=== PATIENT | male | born 1975 | race Caucasian/White ===

== ENCOUNTER 2024-02-15 09:04 | Emergency (ER) | payer OTHER, MEDICAID, SELFPAY ==
--- NOTE | ~2024-02-15 | XR_ITS ---
EXAMINATION: XR THORACIC SPINE XR LUMBAR SPINE CLINICAL INDICATION: Back pain, patient kept moving. COMPARISON: Frontal chest radiograph 05/29/2015. TECHNIQUE: 4 views of the thoracic spine. 3 views of the lumbar spine. FINDINGS: THORACIC SPINE: Degenerative changes on very limited images of the lower cervical spine could be evaluated with dedicated cervical spine radiographs. Moderate multilevel degenerative changes in the thoracic spine most notable in the lower thoracic spine. Moderate anterior wedge compression deformity of likely T11 vertebral body of indeterminate age. Minimal anterior wedge compression deformity of likely T12 vertebral body of indeterminate age. LUMBAR SPINE: Facet arthritis in the lower lumbar spine. Moderate multilevel lumbar spondylosis with moderate loss of disc space height at L4-L5. XR/XR thoracic spine 3V IMPRESSION: 1. Moderate multilevel thoracic spondylosis most notable in the lower thoracic spine. Moderate anterior wedge compression deformity of likely T11 vertebral body of indeterminate age. Minimal anterior wedge compression deformity of likely T12 vertebral body of indeterminate age. 2. Moderate multilevel lumbar spondylosis with moderate loss of disc space height at L4-L5. This study was presented today February 15, 2024 for interpretation. STAT results provided at this time as requested by referring provider.
--- NOTE | ~2024-02-15 | XR_ITS ---
EXAMINATION: XR THORACIC SPINE XR LUMBAR SPINE CLINICAL INDICATION: Back pain, patient kept moving. COMPARISON: Frontal chest radiograph 05/29/2015. TECHNIQUE: 4 views of the thoracic spine. 3 views of the lumbar spine. FINDINGS: THORACIC SPINE: Degenerative changes on very limited images of the lower cervical spine could be evaluated with dedicated cervical spine radiographs. Moderate multilevel degenerative changes in the thoracic spine most notable in the lower thoracic spine. Moderate anterior wedge compression deformity of likely T11 vertebral body of indeterminate age. Minimal anterior wedge compression deformity of likely T12 vertebral body of indeterminate age. LUMBAR SPINE: Facet arthritis in the lower lumbar spine. Moderate multilevel lumbar spondylosis with moderate loss of disc space height at L4-L5. XR/XR lumbar spine 2-3V IMPRESSION: 1. Moderate multilevel thoracic spondylosis most notable in the lower thoracic spine. Moderate anterior wedge compression deformity of likely T11 vertebral body of indeterminate age. Minimal anterior wedge compression deformity of likely T12 vertebral body of indeterminate age. 2. Moderate multilevel lumbar spondylosis with moderate loss of disc space height at L4-L5. This study was presented today February 15, 2024 for interpretation. STAT results provided at this time as requested by referring provider.
[2024-02-15 09:07] VITALS: BP 173/95; PULSE 107; RESP 20; TEMP 36.4; O2SAT 99; BMI 31.2
[2024-02-15 09:28] LABS: MANUAL DIFF FLAG NO
[2024-02-15 09:33] LABS: Basophils Absolute Auto 0.1 X10*3/uL (0.0-0.2); Basophils Percent Auto 0.7 % (0-2); Eosinophils Absolute Auto 0.1 X10*3/uL (0.0-0.4); Eosinophils Percent Auto 0.7 % (0-4); Hematocrit 42.7 % (42.0-52.0); Hemoglobin 15.5 g/dl (14.0-18.0); Imm Gran Abs Auto 0.08 X10*3/uL (0.00-0.03); Imm Gran Pct Auto 0.9 % (0.0-0.4); Lymphocytes Absolute Auto 1.6 X10*3/uL (1.2-4.9); Lymphocytes Percent Auto 18.4 % (20-40); Mean Corpuscular HGB Conc 36.3 g/dl (31.0-36.0); Mean Corpuscular Hemoglobin 31.3 pg (27.0-33.0); Mean Corpuscular Volume 86.3 fL (80.0-98.0); Mean Platelet Volume 10.2 fL (9.4-12.4); Monocytes Absolute Auto 0.5 X10*3/uL (0.1-1.2); Monocytes Percent Auto 6.1 % (2-11); Neutrophils Absolute Auto 6.3 x10*3/uL (2.0-8.3); Neutrophils Percent Auto 73.2 % (45-73); Platelet Count 204 X10*3/uL (160-400); Red Blood Count 4.95 X10*6/uL (4.60-5.80); Red Cell Distribution Width 12.4 % (11.0-16.0); White Blood Count 8.5 X10*3/uL (4.8-10.8)
[2024-02-15 09:33] LABS: Glucose, Whole Blood 279 mg/dL (60-115)
[2024-02-15 09:39] LABS: Estimated Average Glucose 206 mg/dL; Hemoglobin A1c % 8.8 % (<6.0)
[2024-02-15 09:44] LABS: Alanine Aminotransferase 5 U/L (0-40); Albumin Level 3.7 g/dL (3.5-5.0); Alkaline Phosphatase 76 U/L (39-117); Anion Gap 12 (12-20); Aspartate Amino Transferase 17 U/L (5-37); Bilirubin Total 0.4 mg/dL (0.0-1.0); Blood Urea Nitrogen 13 mg/dL (9-16); Calcium 9.3 mg/dL (8.4-10.2); Carbon Dioxide 25 mmol/L (22-29); Chloride 107 mmol/L (96-108); Creatinine Clr Calc Pharmacy 128.1; Estimated Glomerular Filt Rate > 60; Glucose Random 299 mg/dL (60-115); Potassium 4.6 mmol/L (3.3-5.1); Sodium 139 mmol/L (135-145); Total Protein 7.3 g/dL (6.5-8.0)
--- NOTE | 2024-02-15 09:45 | ED.GENADULT ---
HPI - General Adult General Chief complaint: General Medical Stated complaint: Back pain radiating to legs Time Seen by Provider: 02/15/24 09:32 Source: patient and RN notes reviewed Mode of arrival: ambulatory Limitations: no limitations History of Present Illness ED Provider: Ivonne Troy PA-C HPI narrative: This is a [id number]-male, with a hx of poorly controlled diabetes, HTN, and HLD, who presents to the ER with complaints of acute on chronic back pain x 1 week. Patient states that he has had no recent trauma or injury. He states that he has been chronically managed by pain management in [place] however states about 2 months ago he relocated to this area. He is currently managed with gabapentin and oxycodone which he has been taking with some relief. He states that over the last week he has had worsening low back pain with numbness and tingling down his left leg. He denies any saddle anesthesia. No urinary or bowel retention or incontinence. He denies any fevers, chills, chest pain, shortness of breath, abdominal pain, nausea, vomiting or diarrhea. No other complaints or concerns at this time. MD complaint: Acute on chronic Back pain Onset (ago): week(s) Location: back Radiation: extremity Severity: moderate Quality: aching Pain Consistency: constant Relieving factors: none Exacerbating factors: none Associated symptoms: denies other symptoms Treatments prior to arrival: none Related Data Previous Rx's ?Medication ?Instructions ?Recorded lidocaine 5 % topical patch 1 patch topical DAILY #30 ea 02/15/24 prednisone 20 mg tablet 40 mg (2 x 20 mg) PO DAILY 5 days 02/15/24 #10 tabs Allergies Allergy/AdvReac Type Severity Reaction Status Date / Time SEAFOOD Allergy Unknown SWELLING Uncoded 02/15/24 09:10 Review of Systems Review of Systems: Yes all other systems are reviewed and are negative Constitutional: Constitutional: Reports as per [facility] Social History Social History Advance Directives: No Advance Directives Information Provided: Yes Do you have a plan to hurt others: No Plan Physical Exam ED Vital Signs: Vital Signs - 24 hr 02/15/24 09:07 02/15/24 10:33 02/15/24 13:41 Temperature 97.6 F 98.1 F Pulse Rate 107 H 72 56 Respiratory Rate 20 16 16 Blood Pressure 173/95 H 165/87 H 184/91 H Pulse Oximetry 99 98 99 Oxygen Delivery Method Room Air Room Air Room Air 02/15/24 14:54 Temperature 98.2 F Pulse Rate 60 Respiratory Rate 16 Blood Pressure 192/88 H Pulse Oximetry 98 Oxygen Delivery Method Room Air BMI result Body Mass Index 31.2 Const General: cooperative, comfortable and no acute distress Orientation/consciousness: patient oriented x3 Limitations: no limitations HENMT Head: Yes normal to inspection, Yes normocephalic and Yes atraumatic Ears: hearing grossly normal bilaterally General nose exam: Normal external nose present Face and sinus: Yes normal facial exam Mouth: Normal oral and palatal mucosa present, oropharynx normal and moist mucous membranes Throat: Yes posterior oropharynx normal Eyes General: appearance normal, both eyes and all related structures Eyelids: Yes eyelids normal Conjunctivae: conjunctivae normal Sclerae: sclerae normal Pupils: Equal, round and reactive pupils present EOM: EOMs intact bilaterally Neck Neck: Yes normal visual inspection, Yes full ROM and Yes no lymphadenopathy Lymphatic: no lymphadenopathy noted Chest Chest palpation & inspection: normal inspection of the chest Resp Effort & Inspection: normal respiratory effort and able to speak in complete sentences Auscultation: clear to auscultation bilaterally, no crackles, no rales, no rhonchi and no wheezes Cardio Rate: regular rate Rhythm: regular rhythm Heart sounds: S1 normal heart sound present and S2 normal heart sound present GI Inspection: Yes normal to inspection Back/Spine/Pelvis Other: Patient has mild tenderness palpation along the thoracic and lumbar midline spine. Positive straight leg raise on the left. Distal sensation circulation intact. Strength 5/5 in lower extremities. Skin General skin exam: no rashes or lesions noted Trauma: no lacerations or abrasions Wounds: no wounds Neuro General: patient oriented x3 and moves all extremities Cranial nerves: Yes Equal, round and reactive pupils present Extrem General: Yes normal to inspection Right upper extremity: normal to inspection Left upper extremity: normal to inspection Right lower extremity: normal to inspection Left lower extremity: normal to inspection Course Reevaluation(s) Reevaluation #1: X-rays reviewed revealing multilevel thoracic spondylosis with moderate anterior wedge compression deformity likely T11 vertebral body, indeterminate of age. As well as multilevel lumbar spondylosis with moderate disc space height of L4-L5. Discussed findings with patient. Given referral to help desk support specialist as well as pain management and [facility] for primary care. Given that he recently moved to the area, he will need follow-up. Discharged with prednisone. He is already on gabapentin and narcotic pain medication therefore will not treat with any additional medications due to medication interactions. He understands and agrees with plan. Given return precautions. Patient stable for discharge. Time: 15:39 Medications Administered Discontinued Medications Generic Name Dose Route Start Last Admin Trade Name Satya PRN Reason Stop Dose Admin Ketorolac Tromethamine 30 mg 02/15/24 10:32 02/15/24 11:17 Ketorolac Tromethamine 30 Mg/Ml Vial IM 02/15/24 10:33 30 mg ONCE ONE Administration Medical Decision Making Medical Decision Making [facility] Narrative: This is a 48-year-old male, with a history of diabetes, and chronic back pain, who presents emergency department with complaints of acute on chronic back pain times 1 week. On arrival, patient comfortable, speaking full sentences under no distress. He does have midline lumbar spine tenderness as well as thoracic spine tenderness. He has no chest pain, shortness breath, abdominal pain, nausea, vomiting or diarrhea. This patient presents with back pain most consistent with lumbar radiculopathy. Differential diagnoses includes lumbago versus musculoskeletal spasm / strain versus sciatica.No back pain red flags on history or physical. Presentation not consistent with malignancy (lack of history of malignancy, lack of B symptoms), fracture (no trauma, no bony tenderness to palpation), cauda equina (no bowel or urinary incontinence/retention, no saddle anesthesia, no distal weakness), AAA, viscus perforation , pulmonary embolism, renal colic, pyelonephritis (afebrile, no CVAT, no urinary symptoms). Given the clinical picture, as well as no history of prior visits, will obtain x-rays for evaluation. Differential Diagnosis Differential Diagnoses: The differential diagnosis associated with the presentation includes See above Admission/Observation Consideration of admission/observation: Escalation of care including admission/observation considered Escalation of care including admission/observation considered however given workup today not warranted at this time. Lab Data [facility] Lab Attestation statement: I reviewed the patient's lab results. No leukocytosis, stable H&H, chemistry within normal limits. Hyperglycemic at 279, hemoglobin a1c 8.8. Discussed the importance of following up with PCP. 02/15/24 09:23 02/15/24 09:23 Labs: Lab Results 02/15/24 02/15/24 Range/Units 09:23 09:29 WBC 8.5 (4.8-10.8) X10*3/uL RBC 4.95 (4.60-5.80) X10*6/uL Hgb 15.5 (14.0-18.0) g/dl Hct 42.7 (42.0-52.0) % MCV 86.3 (80.0-98.0) fL MCH 31.3 (27.0-33.0) pg MCHC 36.3 H (31.0-36.0) g/dl RDW 12.4 (11.0-16.0) % Plt Count 204 (160-400) X10*3/uL MPV 10.2 (9.4-12.4) fL Immature Gran % (Auto) 0.9 H (0.0-0.4) % Neut % (Auto) 73.2 H (45-73) % Lymph % (Auto) 18.4 L (20-40) % [place] % (Auto) 6.1 (2-11) % Eos % (Auto) 0.7 (0-4) % Baso % (Auto) 0.7 (0-2) % Lymph # (Auto) 1.6 (1.2-4.9) X10*3/uL [place] # (Auto) 0.5 (0.1-1.2) X10*3/uL Eos # (Auto) 0.1 (0.0-0.4) X10*3/uL Baso # (Auto) 0.1 (0.0-0.2) X10*3/uL Abs Immat Gran (auto) 0.08 H (0.00-0.03) X10*3/uL Absolute Neuts (auto) 6.3 (2.0-8.3) x10*3/uL Absolute Nucleated RBC 0.000 (0.0-0.012) X10*3/uL Nucleated RBC % (auto) 0.0 (0.0-0.2) /100WBC Sodium 139 (135-145) mmol/L Potassium 4.6 (3.3-5.1) mmol/L Chloride 107 (96-108) mmol/L Carbon Dioxide 25 (22-29) mmol/L Anion Gap 12 (12-20) BUN 13 (9-16) mg/dL Creatinine 0.89 (0.5-1.4) mg/dL Estim Creat Clear Calc 128.1 Estimated GFR > 60 POC Glucose 279 H (60-115) mg/dL Random Glucose 299 H (60-115) mg/dL Estimat Average Glucose 206 mg/dL Hemoglobin A1c % 8.8 H (<6.0) % Calcium 9.3 (8.4-10.2) mg/dL Total Bilirubin 0.4 (0.0-1.0) mg/dL AST 17 (5-37) U/L ALT 5 (0-40) U/L Alkaline Phosphatase 76 (39-117) U/L Total Protein 7.3 (6.5-8.0) g/dL Albumin 3.7 (3.5-5.0) g/dL Radiology Impression Discussion of test interpretation with radiology: I have reviewed the radiologist's reading. External Record Review External record reviewed: Inpatient record, Office record, Outpatient record, Prior outpatient labs, Prior outpatient radiology, Primary care record and Outside ED record Discharge Plan Discharge Clinical Impression: Acute left lumbar radiculopathy Patient Disposition: Home, Self-Care Instructions: Lower Back Exercises (ED) Additional Instructions: Your seen in the emergency department due to back pain. Your x-rays today show degenerative changes as well as a possible compression fracture. You need to follow-up with pain management as well as the help desk support specialist. Continue taking your at home pain medication as prescribed to you at the pain management Clinic in [place]. Gentle stretching, massage, heat or ice, as well as applying Lidoderm patches as needed for your symptoms can also help with pain. Follow-up with a primary care physician, call today to make an appointment. If any new or worsening symptoms occur including but not limited to worsening pain, fevers, chills, chest pain, shortness of breath, numbness and tingling into your groin, urinary or bowel retention or incontinence, please return for re-evaluation. Prescriptions: New prednisone 20 mg tablet 40 mg PO DAILY 5 Days Qty: 10 0RF lidocaine 5 % adhesive patch,medicated 1 patch topical DAILY Qty: 30 0RF Rx Instructions: leave on most painful area for up to 12 hrs Referrals: [facility] [Provider Group] [facility] [Provider Group] Center,[facility] [Physician] - Discharge Date/Time: 02/15/24 14:59 Print Language: Upper Sorbian
[2024-02-15 10:33] VITALS: BP 165/87; PULSE 72; RESP 16; TEMP 36.7; O2SAT 98
[2024-02-15] MEDS: Ketorolac Tromethamine 30 MG/ML VIAL IM (11:17)
[2024-02-15 13:41] VITALS: BP 184/91; PULSE 56; RESP 16; O2SAT 99
[2024-02-15 14:54] VITALS: BP 192/88; PULSE 60; RESP 16; TEMP 36.8; O2SAT 98
== END 2024-02-15 14:59 | disposition home or self-care (01) ==
PROVIDERS: Emergency Provider Emergency Medicine
DX: M54.16 Radiculopathy, lumbar region (principal); M54.50 Low back pain, unspecified; M79.605 Pain in left leg; M79.604 Pain in right leg; M54.6 Pain in thoracic spine; I10 Essential (primary) hypertension; R79.9 Abnormal finding of blood chemistry, unspecified; Z79.899 Other long term (current) drug therapy
CPT/HCPCS: 36415; 72072; 72100; 80053; 82947; 83036; 85025; 96372; 99283; 99284; J1885

== ENCOUNTER 2024-02-28 08:43 | Outpatient (AMB) | payer OTHER, MEDICAID, SELFPAY ==
[2024-02-28 09:01] VITALS: BP 160/84; PULSE 87; O2SAT 97; BMI 31.1
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
== END 2024-02-28 10:03 | disposition home or self-care (01) ==
PROVIDERS: PCP Physician Assistant Medical; Visit Provider Physician Assistant Medical
DX: E11.65 Type 2 diabetes mellitus with hyperglycemia (principal); I10 Essential (primary) hypertension; E78.00 Pure hypercholesterolemia, unspecified; S98.1 Traumatic amputation of one toe; M54.16 Radiculopathy, lumbar region; R22.1 Localized swelling, mass and lump, neck; R10.12 Left upper quadrant pain; F17.200 Nicotine dependence, unspecified, uncomplicated; Z13.31 Encounter for screening for depression; M54.12 Radiculopathy, cervical region
CPT/HCPCS: 99204; G2211

== ENCOUNTER 2024-03-09 11:43 | Outpatient (REF) | payer OTHER, SELFPAY ==
--- NOTE | ~2024-03-09 | US_ITS ---
EXAMINATION: US ABDOMEN COMPLETE CLINICAL INFORMATION: Unspecified abdominal pain. COMPARISON: No prior imaging available at the time of dictation. TECHNIQUE: Real-time imaging of the abdominal viscera. FINDINGS: PANCREAS: Visualized portions of the pancreas are unremarkable however portions are obscured by bowel gas limiting evaluation. ABDOMINAL AORTA: The proximal, mid, and distal segments are normal in caliber. INFERIOR VENA CAVA: Visualized portions are normal. LIVER: Normal. The liver is normal in size. The liver contour is normal. Parenchymal echogenicity is normal. No focal hepatic lesion. There is no intrahepatic biliary duct dilatation seen. GALLBLADDER: A 7 mm sessile gallbladder polyp, recommend follow-up ultrasound in 12 months. The gallbladder is physiologically distended without evidence of stones, sludge, wall thickening or pericholecystic fluid. COMMON BILE DUCT: Normal in caliber measuring 0.29 cm in diameter. RIGHT KIDNEY: Normal. No hydronephrosis. No renal calculi or focal parenchymal lesions. The kidney measures 12.6 cm in maximum dimension. LEFT KIDNEY: Normal. No hydronephrosis. No renal calculi or focal parenchymal lesions. The kidney measures 12.5 cm in maximum dimension. SPLEEN: Normal. The spleen measures 10.1 cm in maximum dimension. FREE FLUID: None. US/US abdomen complete IMPRESSION: A 7 mm sessile gallbladder polyp, recommend follow-up ultrasound in 12 months.
--- NOTE | ~2024-03-09 | US_ITS ---
EXAMINATION: US SOFT TISSUE OF THE NECK CLINICAL INFORMATION: Localized swelling, mass and lump, neck. COMPARISON: None available. TECHNIQUE: Linear transducer grayscale and color Doppler examination of the right mid/lateral neck. FINDINGS: A 3.1 x 1.1 x 2.9 cm heterogeneous echogenicity solid mass corresponding to the area of palpable lump in the right mid neck which demonstrates internal vascularity, and is not typical appearance of a lipoma, recommend correlation with contrast-enhanced MR neck. US/US soft tiss head and/or neck IMPRESSION: A 3.1 cm heterogeneous echogenicity solid mass corresponding to the area of palpable lump in the right mid neck which demonstrates internal vascularity, and is not typical appearance of a lipoma, possibly an atypical lipomatous lesion or other soft tissue mass. Recommend correlation with contrast-enhanced MR neck.
== END 2024-03-09 11:44 | disposition home or self-care (01) ==
LOC: HO.US 11:43
PROVIDERS: PCP Physician Assistant Medical; Visit Provider Physician Assistant Medical
DX: R22.1 Localized swelling, mass and lump, neck (principal); R10.9 Unspecified abdominal pain
CPT/HCPCS: 76536; 76700

== ENCOUNTER 2024-04-11 08:36 | Outpatient (REF) | payer OTHER, SELFPAY ==
--- NOTE | ~2024-04-11 | MR_ITS ---
EXAMINATION: MR CERVICAL SPINE WITHOUT CONTRAST LUMBAR SPINE WITHOUT CONTRAST CLINICAL INFORMATION: Radiculopathy COMPARISON: None TECHNIQUE: MRI of the cervical and lumbar spine was obtained using routine sequences without contrast. FINDINGS: CERVICAL SPINE: The craniocervical junction is intact. The cervical lordosis is preserved. Trace retrolisthesis at C3-C4. Vertebral body heights are normal without acute compression fracture. No suspicious osseous lesion. Diffuse disc desiccation with moderate to severe C5-C6 and moderate C6-C7 disc height loss and type I Modic endplate changes at these levels. Congenital spinal canal narrowing with superimposed spondylosis. Level by level detail as follows: C2-C3: Bilateral uncovertebral spurring and mild facet arthrosis. No spinal canal stenosis. No significant neural foraminal narrowing. C3-C4: Disc osteophyte complex with bilateral uncovertebral joint hypertrophy and mild facet arthrosis. Moderate spinal canal and severe bilateral neural foraminal stenosis. C4-C5: Disc osteophyte complex with left paracentral disc protrusion, bilateral vertebral joint hypertrophy, and mild facet arthrosis. Moderate spinal canal stenosis with mass effect along the left ventral cord and severe bilateral neural foraminal narrowing. C5-C6: Disc osteophyte complex with broad-based paracentral disc extrusion eccentric to the right demonstrating superior and inferior migration, marked uncovertebral joint hypertrophy and mild facet arthrosis. Severe spinal canal stenosis eccentric to the right with cord compression and patchy intramedullary signal abnormality, which may reflect a combination of chronic compressive myelopathy and cord edema. Severe right and moderate left neural foraminal stenosis. C6-C7: Disc osteophyte complex with marked uncovertebral joint hypertrophy and mild facet arthrosis. Mild spinal canal, severe right and mild left neural foraminal stenosis. C7-T1: No spinal canal or neural foraminal stenosis. The cervical spinal cord is normal in signal and morphology. No epidural fluid collection, mass, or hematoma. No significant abnormalities of the paraspinal musculature. The flow voids of the major cervical vessels are maintained. The visualized intracranial structures are normal. Complete opacification of the right maxillary sinus which is slightly atelectatic in appearance with apparent slight inferior descent of the right orbital floor (image image 107, series 1). Findings raise suspicion for silent sinus syndrome for which further evaluation with maxillofacial CT and ENT consultation is advised. LUMBAR SPINE: Normal lumbar lordosis is preserved. retrolisthesis at L5-S1. Slight anterior wedging and chronic height loss of the T11 greater than T12 vertebral bodies. Lumbar vertebral body heights are maintained. Intraosseous hemangioma in the T11 vertebral body. Multilevel disc desiccation and mild disc loss, most pronounced at L2-L3. Mild type I Modic endplate changes at L5-S1. Level by level detail as follows: L1-L2: Mild bilateral facet arthrosis. No spinal canal or neural foraminal stenosis. L2-L3: Prominence of the dorsal epidural fat. Annular disc bulge/disc osteophyte complex and mild to moderate facet arthrosis with ligamentum flavum thickening. Moderate to severe spinal canal stenosis and jopg-ey-uiecrpwy neural foraminal stenosis with deformity/impingement upon the exiting L2 nerve roots. L3-L4: Prominent at the dorsal epidural fat. Annular disc bulge with subarticular/foraminal annular fissuring and mild facet arthrosis. Moderate spinal canal and subarticular zone narrowing. Moderate bilateral neural foraminal stenosis with impingement along the exiting right L3 nerve root. L4-L5: Prominence of the dorsal epidural fat. Annular disc bulge with inferiorly migrated left central/subarticular disc extrusion and moderate facet arthrosis with ligamentum flavum thickening. Severe left subarticular zone narrowing with compression of the traversing left L5 nerve root. Moderate spinal canal stenosis. Right subarticular zone narrowing with lesser mass effect along the traversing right L5 nerve root. Moderate left and mild right neural foraminal stenosis with mass effect along the exiting left L4 nerve root. L5-S1: Annular disc bulge with lateral disc osteophytes and bilateral subarticular disc extrusions with associated annular fissuring. Moderate facet arthrosis with ligamentum flavum thickening. Mild spinal canal narrowing in the transverse dimension. Right greater than left subarticular zone narrowing with mass effect along the traversing S1 nerve roots. Severe left greater than right neural foraminal stenosis with mass effect along the existing/extraforaminal L5 nerve roots. Asymmetric enlargement and edema of the exiting/extraforaminal left L5 nerve root related to compressive neuritis. The conus medullaris terminates at the level of T12-L1. The distal spinal cord is normal in appearance. . No epidural fluid collection, hematoma, or mass. No significant abnormalities of the paraspinal musculature. Limited evaluation of the intra-abdominal structures without significant abnormalities. The abdominal aorta is of normal contour and caliber. MR/MR lumbar spine wo con IMPRESSION: CERVICAL SPINE: 1. 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 2. Moderate spinal canal stenosis at C3-C4 and C4-C5. Multilevel high-grade neural foraminal stenosis as described. 3. Complete opacification of the right maxillary sinus which is slightly atelectatic in appearance with apparent slight inferior descent of the right orbital floor. Findings raise suspicion for silent sinus syndrome for which further evaluation with maxillofacial CT and ENT consultation is advised. LUMBAR SPINE: 1. At L4-L5, there is a left central/subarticular disc extrusion resulting in severe left subarticular zone narrowing with compression of the traversing left L5 nerve root. There is also moderate spinal canal stenosis, right subarticular zone narrowing with lesser mass effect along the traversing right L5 nerve root, and moderate left neural foraminal stenosis with mass effect along the exiting left L4 nerve root. 2. At L2-L3, there is moderate to severe spinal canal and yyxp-ut-afcxqnpa neural foraminal stenosis with deformity/impingement upon the exiting L2 nerve roots. 3. At L3-L4, there is moderate spinal canal stenosis and moderate bilateral neural foraminal stenosis with impingement along the exiting right L3 nerve root. 4. At L5-S1, there is mild spinal canal and subarticular zone narrowing with mass effect along the traversing S1 nerve roots. Severe left greater than right neural foraminal stenosis with mass effect along the existing/extraforaminal L5 nerve roots. Asymmetric enlargement and edema of the exiting/extraforaminal left L5 nerve root related to compressive neuritis. As this exam was dictated after hours, a [employer] senior unix administrator will contact the ordering provider at the start of the next business day to facilitate communication of severe spinal canal stenosis with cord signal abnormality at C5-C6. Electronically signed by: Marilu Gay MD 04/30/2024 06:33 PM EDT
== END 2024-04-11 08:37 | disposition home or self-care (01) ==
LOC: HO.MRI 08:36
PROVIDERS: PCP Physician Assistant Medical; Visit Provider Physician Assistant Medical
DX: M54.16 Radiculopathy, lumbar region (principal); M54.12 Radiculopathy, cervical region
CPT/HCPCS: 72141; 72148

== ENCOUNTER 2024-04-13 08:44 | Outpatient (AMB) | payer OTHER, MEDICAID, SELFPAY ==
--- NOTE | 2024-04-13 08:47 | MHC.PC.OV ---
Vital Signs 04/13/24 08:54 Height 6 ft Weight 235 lb 4 oz BMI 31.9 BP 128/68 Blood Pressure Location Rt brachial Position Sitting Respiration 16 Pulse 106 H Pulse Source Pulse Oximeter Temp 98.0 F Temp Source Oral Pulse Oximetry (%) 96 Oxygen Delivery Method Room Air Intake Visit Reasons: follow up 4-6 weeks Intake Note: patient here for 4-6 week follow up Gastroenterology Teacher Required: No Allergies SEAFOOD Allergy (Unknown, Uncoded 02/28/24 09:02) SWELLING Tobacco use date assessed: 04/13/24 HPI HPI Comments History of Present Illness Details This is a 48-year-old male with a past medical history of uncontrolled type 2 diabetes, hypertension, hyperlipidemia and lumbar and cervical radiculopathy presenting for follow up. Chronic back pain- MRI cervcal and lumbar results pending. 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 Antonio Quiñones. He prescribed the patient's Gabapentin and Percocet. MRI report reviewed from 05/07/2020. Patient had bulging discs at L4-L5, L5-S1, L3-L4, L2-L3 resulting in moderate to severe central canal stenosis, foraminal narrowing and impingement of the descending left L5 and S1 nerves. He had an MRI of his cervical spine 12/02/2021 which showed severe canal stenosis and cord compression at C5/C6 due to a large broad-based disc osteophyte complex. At C6 and 7 there was moderate canal stenosis and cord compression and the same at C4-C5. He was seen by neurosurgery, and they recommended surgery for spinal stenosis. This was a [facility]. He tried an injection, but it did not help. He did physical therapy. He needs the MRIs red prior to being seen at the spine Center. Tobacco use- He smokes less than 1/2 pack per day. He cut back since the last visit. The insurance didn't cover the patch. Type 2 diabetes-hemoglobin A1c 8.8% on 02/18/2024. Taking Janumet 50 a 1000 mg 1 pill twice daily and started Ozempic 0.25 mg after out initial visit. He endorses mild stomach upset with this, but he wants to continue it for now. He checks glucose once or twice a day. Readings have been 140-160. Hypertension-BP normal since starting Losartan. He had a negative stress echo in 2020. No dizziness. Hyperlipidemia-he remembers being on cholesterol medication in the past. His prior records note ?claudication,? and he says he had surgery for 1 of the blood vessels in his left leg to ?open it up. ? He has a history of left 3rd toe amputation. Takes ASA 81 mg daily. He is fasting today to have his cholesterol checked. Neck lump-He has the ultrasound which showed a mass and MRI is pending for further evaluation. Per report atypical findings for lipoma. Patient reported left upper abdominal pain at his initial visit. Had CBC and CMP done at ED visit for back pain. I ordered lipase. He will have it drawn today. He does say today though it is not in his abdomen. He says it is in the left lower ribs, and they are tender to touch. No history of trauma. Denies chest pain, shortness of breath, nausea vomiting or changes to bowel movements. No weight loss. He requests cough medication. He says in the fall he sometimes gets a cough at night that has been treated with cough medication with codeine. He does not take it every night. Patient says he never had asthma, and he was never told he has COPD if he does. Denies frequent pulmonary infections and bronchitis. He has an inhaler. No hemoptysis. ROS: Constitutional: No unexplained weight loss, fever, chills or night sweats. Eyes: No vision changes Respiratory: No shortness of breath or sputum production. Denies wheezing. Cardiovascular: No chest pain, chest pressure or chest discomfort. No palpitations. Gastrointestinal: No anorexia, nausea, vomiting or diarrhea. No blood in stool. Genitourinary: No dysuria, hematuria, urinary frequency. Neurologic: No headache, dizziness, syncope Musculoskeletal: see HPI Psychiatric: No SI/HI. Physical exam: Constitutional: Alert, in no distress. Ambulates with cane. Head: Normocephalic. Eyes: Pupils are equal, round and reactive to light. Neck: Supple, Full range of motion. Palpable right submandibular mass. Respiratory: Clear to auscultation. Cardiovascular: S1 S2 regular. No murmurs. Chest: Left anterior lower ribs mildly tender to palpation. No palpable masses. No visible swelling or discoloration. Gastrointestinal: Abdomen soft, ,mild tenderness left upper quadrant, non-distended. Normal bowel sounds. No palpable masses. Musculoskeletal:Pain/limitation with cervical and lumbar flexion, extension and rotation. Positive left SLR. Symmetric reflexes bilaterally. Midline tenderness in the cervical and lumbar spine. LE strength 3/5 bilaterally. 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 Psychiatric: Normal mood and affect [facility] Medical History (Updated 04/04/24 @ 09:07 by LEON Barros) Gallbladder polyp Cervical radiculopathy Tobacco use disorder Claudication in peripheral vascular disease Positive depression screening Lump on neck Lumbar radiculopathy Compression fracture of body of thoracic vertebra Pure hypercholesterolemia Essential hypertension Uncontrolled type 2 diabetes mellitus with hyperglycemia Back disorder High blood pressure High blood cholesterol Diabetes Surgical History (Updated 02/28/24 @ 12:47 by LEON Barros) History of abdominal surgery Amputation of third toe, left, traumatic Family History (Updated 02/28/24 @ 09:19 by Geri Arias CMA) Mother High blood pressure Diabetes Maternal Uncle Diabetes High blood pressure Social History (Updated 02/28/24 @ 09:22 by Geri Arias CMA) Household Members: None Both parents involved: No Caregiver staying overnight: No Housing: Apartment Are you a primary prompt care rn to a significant other at home: No Do you presently have visiting nurse or other home services: No 75 years or older and lives alone: No Alcohol intake: current Comment: on occasion Patient Tobacco Use Status: Current everyday Tobacco user Cigarettes Per Day: 3 e-Cigarette/Vaping Use: Never Used Substance Use Type: Marijuana service: No Current occupational status: disabled Cognitive needs: No Hearing needs: No Vision needs: Yes (Patient wears glasses) Questionnaire Thrive Questionnaire Date Thrive assessed: 02/28/24 JOSE-7 AMB Questionnaire JOSE-7 Date JOSE - 7 assessed: 02/28/24 Source: Developed by Drs. Samir Knight, Jimena Aguila, Jose Blancas and colleagues, with an educational gin from [employer]. Physical exam (Primary Care) Tobacco/Smoking Status: Tobacco use Status Tobacco use date assessed 02/28/24 04/13/24 08:49 Patient Tobacco Use Status Current everyday Tobacco 04/13/24 08:49 e-Cigarette/Vaping Use Never Used 04/13/24 08:49 Thrive Assessment: Date of Thrive Assessment Date Thrive assessed 02/28/24 04/13/24 08:49 Assessment and Plan Assessment & Plan (1) Uncontrolled type 2 diabetes mellitus with hyperglycemia: Code(s): E11.65 - Type 2 diabetes mellitus with hyperglycemia Plan: Continue Janumet 1 pill twice daily and Ozempic. Plan is to repeat hemoglobin A1c at next visit. If A1c is still above 7% we will consider changing Ozempic to Mounjaro since he currently says he can not tolerate dose increase on Ozempic. He will continue to work on lifestyle modifications. He needs to decrease carbohydrates in his diet. Continue glucose monitoring. (2) Essential hypertension: Code(s): I10 - Essential (primary) hypertension Plan: Controlled. Continue losartan 50 mg daily. Recommended smoking cessation. Check BMP. (3) Pure hypercholesterolemia: Code(s): E78.00 - Pure hypercholesterolemia, unspecified Plan: Check lipid profile. Anticipate starting statin. Recommended Mediterranean diet and ongoing efforts of weight loss. (4) Lumbar radiculopathy: Code(s): M54.16 - Radiculopathy, lumbar region Plan: Continue current regimen. MRIs pending. He will be seen at the spine Center once these results are back. (5) Lump on neck: Code(s): R22.1 - Localized swelling, mass and lump, neck Plan: Proceed with MRI for further evaluation. (6) Tobacco use disorder: Code(s): F17.200 - Nicotine dependence, unspecified, uncomplicated Plan: Reviewed the importance of smoking cessation with the patient. He is decreasing slowly. (7) Cervical radiculopathy: Code(s): M54.12 - Radiculopathy, cervical region Plan: see plan for lumbar radiculopathy (8) Rib pain on left side: Code(s): R07.81 - Pleurodynia Plan: X-ray ordered. (9) Cough in adult: Code(s): R05.9 - Cough, unspecified Plan: Chest x-ray ordered. PFT ordered. Short term Rx for cough medication given to patient. Side effects and administration reviewed. He has an albuterol rescue inhaler to use as needed. Plan Follow up in 3 months. Orders: Orders XR chest 2V Today R07.81 - Pleurodynia PFT pulmonary function test Today F17.200 - Nicotine dependence, unspecified, uncomplicated, R05.9 - Cough, unspecified Medications: New codeine-guaifenesin 10-100 mg/5 mL 5 mL PO Q6H 5 days PRN 200 mL 0RF cough Coding Level of Care Code Est Pt Level 4 (59593) Complex EM visit Add On G2211 Diagnoses Uncontrolled type 2 diabetes mellitus with hyperglycemia E11.65 Essential hypertension I10 Pure hypercholesterolemia E78.00 Lumbar radiculopathy M54.16 Lump on neck R22.1 Tobacco use disorder F17.200 Cervical radiculopathy M54.12 Rib pain on left side R07.81 Cough in adult R05.9
[2024-04-13 08:54] VITALS: BP 128/68; PULSE 106; RESP 16; TEMP 36.7; O2SAT 96; BMI 31.9
== END 2024-04-13 09:25 | disposition home or self-care (01) ==
PROVIDERS: Visit Provider Physician Assistant Medical
DX: E11.65 Type 2 diabetes mellitus with hyperglycemia (principal); I10 Essential (primary) hypertension; E78.00 Pure hypercholesterolemia, unspecified; M54.16 Radiculopathy, lumbar region; R22.1 Localized swelling, mass and lump, neck; F17.200 Nicotine dependence, unspecified, uncomplicated; M54.12 Radiculopathy, cervical region; R07.81 Pleurodynia; R05.9 Cough, unspecified
CPT/HCPCS: 99214; G2211

== ENCOUNTER 2024-04-13 09:43 | Outpatient (REF) | payer OTHER, SELFPAY ==
[2024-04-13 12:36] LABS: Anion Gap 10 (12-20); Blood Urea Nitrogen 16 mg/dL (9-16); Calcium 9.2 mg/dL (8.4-10.2); Carbon Dioxide 25 mmol/L (22-29); Chloride 104 mmol/L (96-108); Cholesterol 184 mg/dL (<200); Estimated Glomerular Filt Rate > 60; Glucose Random 336 mg/dL (60-115); HDL Cholesterol 53 mg/dL (>40); LDL Cholesterol Calculated 111 mg/dL (<100); Lipase 49 U/L (8-78); Sodium 135 mmol/L (135-145); Triglycerides 103 mg/dL (<150)
[2024-04-13 12:50] LABS: Prostate Specific Antigen Scr 0.25 ng/mL (<0.05-4.0)
== END 2024-04-13 09:44 | disposition home or self-care (01) ==
LOC: HO.WFDLDS 09:43
PROVIDERS: Visit Provider Physician Assistant Medical
DX: I10 Essential (primary) hypertension (principal); E78.00 Pure hypercholesterolemia, unspecified; M54.16 Radiculopathy, lumbar region; Z12.5 Encounter for screening for malignant neoplasm of prostate; Z13.6 Encounter for screening for cardiovascular disorders; R10.9 Unspecified abdominal pain
CPT/HCPCS: 36415; 80048; 80061; 83690; 84153

== ENCOUNTER 2024-05-08 13:44 | Outpatient (AMB) | payer OTHER, SELFPAY ==
--- NOTE | 2024-05-08 13:47 | A.SPINEOV_ITS ---
Intake Visit Reasons: back pain Intake Note: Mr. Peralta is here today c/o back pain. Integrated Circuit Fabricator Required: No Allergies SEAFOOD Allergy (Unknown, Uncoded 02/28/24 09:02) SWELLING Assessment & Plan Assessment & Plan (1) Lumbosacral radiculopathy: Code(s): M54.17 - Radiculopathy, lumbosacral region Category: Medical Plan Dear LEON Kirk, Thank you for referring Kevan to our office today. He is a pleasant 48-year-old male who comes in today with a chief complaint of neck pain with shooting pains down his bilateral arms. When describing the pain he runs his hands over the dorsal surface of his bilateral arms terminating near the top of his hand. In addition to this, he reports numbness/tingling in his bilateral arms, and states he has tingling in his fingertips. He reports issues with dexterity and says he has trouble buttoning buttons and picking up small things. He also has had worsening balance issues for the last 5 years. He states his balance is now to the point where he can not walk in a straight line, and needs to ambulate with a cane. He reports he has tried physical therapy in the past his attempted cortisone injections and has even done therapeutic massages without any significant symptom relief. He has tried hhpu-qbl-vrfqojm medications including Tylenol and pain patches/creams. He has not found these to be useful. He denies any alleviating/aggravating factors. PMH: Type 2 diabetes (last A1c was 8.8), hypertension. Social hx: Patient smokes 1/2 pack cigarettes per day. Also reports regular marijuana use. Denies any other substance use. Medications: Aspirin, atorvastatin, codeine, epinephrine, gabapentin, losartan, oxycodone, sitagliptin, Mounjaro. Allergies: Seafood. Physical exam: The patient has 4/5 strength with bilateral iliopsoas and deltoid testing. The rest of his strength is 5/5. He reports sensational deficits over his bilateral forearms and in his fingertips. The rest of his sensation is intact. His reflexes are 2+ intact with no evidence of hyperreflexia on exam. Given this, he does have bilateral (+) Blue's. He also has 1-2 beats of clonus in his bilateral ankles. The patient ambulates with the assistance of a cane and has a somewhat spastic gait. Imaging review: MRI of the cervical spine completed here at [facility] shows severe spinal cord compression at C5-6 with associated T2 signal change and myelomalacia. There is severe bilateral foraminal stenosis assoc iated with this as well. Impression: Kevan is a pleasant 48-year-old male who comes in today with a chief complaint of neck pain and shooting pains into his bilateral arms. In addition to this he reports upper extremity sensational deficits, proximal muscle weakness, and difficulties with dexterity. On examination he has multiple myelopathic reflexes. His imaging shows evidence of myelomalacia. This patient needs to have his spinal cord decompression at C5-6 before his symptoms of myelopathy worsen. This is something that Dr. Ovalles would typically offer a C5-6 ACDF. I will review this case with him tomorrow and attempt to have the patient booked thereafter. Lastly, I did briefly review the patient's lumbar MRI which does show surgical pathology and will likely need be addressed in the very near future. However at this time his cervical spine takes priority. Thank you for allowing us to care for your patient. The total time spent with this visit with this patient was 45 minutes reviewing history, physical exam, MRI imaging review, and implementation of treatment plan or further diagnostic testing Landon Ovalles MD,PhD [facility] Coding Level of Care Code New Pt Level 4 (40183) Diagnoses Lumbosacral radiculopathy M54.17
== END 2024-05-08 15:42 | disposition home or self-care (01) ==
PROVIDERS: PCP Physician Assistant Medical; Referring Provider Physician Assistant Medical; Visit Provider Physician Assistant
DX: M54.17 Radiculopathy, lumbosacral region (principal)
CPT/HCPCS: 99204

== ENCOUNTER → 2024-05-08 13:44 | Outpatient (BNVA) | payer OTHER, SELFPAY | PROVIDERS: PCP Physician Assistant Medical; Visit Provider Physician Assistant | DX: M54.17 Radiculopathy, lumbosacral region (principal) | CPT/HCPCS: 99202 ==

== ENCOUNTER 2024-05-18 06:00 | Day surgery (SDC) | payer OTHER, SELFPAY ==
--- NOTE | 2024-05-17 12:14 | P.CONAN_ITS ---
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 (Acute) Cervical stenosis of spinal canal (Acute) Gallbladder polyp (Acute) Cervical radiculopathy (Acute) Tobacco use disorder (Acute) Claudication in peripheral vascular disease (Acute) Positive depression screening (Acute) Lump on neck (Acute) Amputation of third toe, left, traumatic (Acute) Lumbar radiculopathy (Acute) Compression fracture of body of thoracic vertebra (Acute) Pure hypercholesterolemia (Acute) Essential hypertension (Acute) Uncontrolled type 2 diabetes mellitus with hyperglycemia (Acute) Past Medical History Medical History Sinus congestion Opacified maxillary sinus Lumbosacral radiculopathy 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 Cervical stenosis of spinal canal Gallbladder polyp Cervical radiculopathy Tobacco use disorder Claudication in peripheral vascular disease Positive depression screening Lump on neck Lumbar radiculopathy Compression fracture of body of thoracic vertebra Pure hypercholesterolemia Essential hypertension Uncontrolled type 2 diabetes mellitus with hyperglycemia Back disorder High blood pressure High blood cholesterol Diabetes Family History Family History Mother High blood pressure Diabetes Maternal Uncle Diabetes High blood pressure Surgical History Surgical History History of abdominal surgery Amputation of third toe, left, traumatic Social History Social History Household Members: None Housing: Apartment Are you a primary lawn care professional to a significant other at home: No Do you presently have visiting nurse or other home services: No Alcohol intake: current Alcohol intake frequency: holidays/special occasions only Comment: on occasion Patient Tobacco Use Status: Current everyday Tobacco user Tobacco use type: Cigarette Cigarettes Per Day: 5 e-Cigarette/Vaping Use: Never Used Substance Use Type: Marijuana service: No Current occupational status: disabled Cognitive needs: No Hearing needs: No Vision needs: Yes (Patient wears glasses) Meds Allergies Allergy/AdvReac Type Severity Reaction Status Date / Time SEAFOOD Allergy Unknown SWELLING Uncoded 02/28/24 09:02 Home Medications ?Medication ?Instructions ?Recorded ?Confirmed ?Last Taken ?Type aspirin 81 mg tablet,delayed 81 mg PO DAILY 02/28/24 05/16/24 History release (Adult Aspirin Regimen) sitagliptin phosphate 50 1 tab PO BID 02/28/24 05/15/24 09:00 History mg-metformin 1,000 mg tablet (Augumet) Exam Pertinent Lab Results Pertinent Lab Results: Laboratory Tests 02/15/24 04/13/24 09:23 09:45 WBC 8.5 Hgb 15.5 Hct 42.7 Plt Count 204 Sodium 135 Potassium 4.0 Chloride 104 Carbon Dioxide 25 BUN 16 Creatinine 0.91 Assessment and Plan Assessment Anesthesia Assessment: Chart Reviewed Documented by User: Joan Castillo MD 05/18/24 09:47 HPI - Anesthesia Eval Consult details Narrative: 48yo M for C5-6 Ant Cerv Discectomy w/ fusion Recently moved from [place] 05/18/24: Aspirin 2 days ago. Blood sugar 323mg/dL. Dr Ovalles aware. Patient with myelopathy- surgery urgent.Will proceed with insulin coverage. Anesthesia Pre-Procedure Meds Is the patient on any of the following meds?: GLP1/DPP4 (Januvia 05/15/24. 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 (Acute) Cervical stenosis of spinal canal (Acute) Gallbladder polyp (Acute) Cervical radiculopathy (Acute) Tobacco use disorder (Acute)- last cigarette this morning Marijuana use- last used yesterday Claudication in peripheral vascular disease (Acute) Positive depression screening (Acute) Lump on neck (Acute) Amputation of third toe, left, traumatic (Acute) Lumbar radiculopathy (Acute) Compression fracture of body of thoracic vertebra (Acute) Pure hypercholesterolemia (Acute) Essential hypertension (Acute) Uncontrolled type 2 diabetes mellitus with hyperglycemia (Acute) - BS 323mg% Baby aspirin 2 days ago Denies MONY Past Medical History Medical History Sinus congestion Opacified maxillary sinus Lumbosacral radiculopathy 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 Cervical stenosis of spinal canal Gallbladder polyp Cervical radiculopathy Tobacco use disorder Claudication in peripheral vascular disease Positive depression screening Lump on neck Lumbar radiculopathy Compression fracture of body of thoracic vertebra Pure hypercholesterolemia Essential hypertension Uncontrolled type 2 diabetes mellitus with hyperglycemia Back disorder High blood pressure High blood cholesterol Diabetes Family History Family History Mother High blood pressure Diabetes Maternal Uncle Diabetes High blood pressure Family history of problems with anesthesia: No Surgical History Surgical History History of abdominal surgery Amputation of third toe, left, traumatic History of Problems with Anesthesia: No Social History Social History Household Members: None Housing: Apartment Are you a primary lawn care professional to a significant other at home: No Do you presently have visiting nurse or other home services: No Alcohol intake: current Alcohol intake frequency: holidays/special occasions only Comment: on occasion Patient Tobacco Use Status: Current everyday Tobacco user Tobacco use type: Cigarette Cigarettes Per Day: 5 e-Cigarette/Vaping Use: Never Used Substance Use Type: Marijuana service: No Current occupational status: disabled Cognitive needs: No Hearing needs: No Vision needs: Yes (Patient wears glasses) Meds Allergies Allergy/AdvReac Type Severity Reaction Status Date / Time SEAFOOD Allergy Unknown SWELLING Uncoded 02/28/24 09:02 Home Medications ?Medication ?Instructions ?Recorded ?Confirmed ?Last Taken ?Type aspirin 81 mg tablet,delayed 81 mg PO DAILY 02/28/24 05/16/24 History release (Adult Aspirin Regimen) sitagliptin phosphate 50 1 tab PO BID 02/28/24 05/15/24 09:00 History mg-metformin 1,000 mg tablet (Augcarment) Exam Height,Weight and Vital Signs: Height 6 ft Weight 107.955 kg Vital Signs Temp Pulse Resp BP Pulse Ox O2 Del Method 05/18/24 06:25 98.0 F 67 16 168/82 H 97 Room Air Pertinent Lab Results Pertinent Lab Results: Laboratory Tests 02/15/24 04/13/24 09:23 09:45 WBC 8.5 Hgb 15.5 Hct 42.7 Plt Count 204 Sodium 135 Potassium 4.0 Chloride 104 Carbon Dioxide 25 BUN 16 Creatinine 0.91 Lab Results 05/18/24 Range/Units 06:32 POC Glucose 323 H (60-115) mg/dL Narrative Narrative: EKG 05/18/24: NSR 66. LAD. LVH with QRS widening. NS T wave abnormality Airway Mallampati Class: III TM Dist: >3cm Neck ROM: Limited Partial: Lower Loose/Missing/Broken Teeth: Yes (Partial dentures bottom. Some missing teeth. Denies broken or loose teeth) Heart: RRR Lungs: CTAB Assessment and Plan Assessment Anesthesia Assessment: Anesthesia Plan Discussed and Chart Reviewed Final Anesthetic Review Family History of Problems with Anesthesia: No History of Problems with Anesthesia: No NPO: Yes ASA Class: III Final Preanesthetic Review: No Changes in Pt Med Stat, Meds/Allgs Chart Reviewed, Consent Obtained/Reviewed and Anes Risks/Benef Reviewed Patient Risk: Intermediate Procedure Risk: Low Assessment/Block/Sedation in SS: Assess/Block/Sedation-SS Anesthetic Plan Anesthetic Plan: GA Disposition: Standard PACU
[2024-05-18] VITALS (15 sets, daily range): BP systolic 168–207; BP diastolic 68–106; PULSE 60–89; RESP 12–26; TEMP 36.7–36.9; O2SAT 95–100; BMI 32.3
--- NOTE | 2024-05-18 06:06 | ECG_ITS ---
Test Reason : pre op Blood Pressure : / mmHG Vent. Rate : 066 BPM Atrial Rate : 066 BPM P-R Int : 126 ms QRS Dur : 132 ms QT Int : 394 ms P-R-T Axes : 017 -48 093 degrees QTc Int : 413 ms Normal sinus rhythm Left axis deviation Left ventricular hypertrophy with QRS widening ( R in aVL , Firth product ) Nonspecific T wave abnormality Abnormal ECG When compared with ECG of 23-MAY-2014 08:26, Questionable change in QRS duration QRS axis Shifted left Referred By: Angela Mendoza Electronically Signed By:KIRAN FLORES
[2024-05-18 06:36] LABS: Glucose, Whole Blood 323 mg/dL (60-115)
--- NOTE | 2024-05-18 07:00 | MHC.SHP ---
Pre-Procedural Eval Section A - 24 Hr Update-Section A only Date of Service: 05/18/24 The patient is an INPATIENT: No Changes since office visit: No Cold of Flu in the past 2 weeks, No New Medical Problems, No Changes in Medication and No Patient answered all questions The patient has been examined within 24 hours of the surgical procedure. The History & Physical has been completed within 30 days and I have reviewed it.: No Section B - Complete if H&P > 30 days Chief Complaint: Radiculopathy, cervical region Allergies: Allergies Allergy/AdvReac Type Severity Reaction Status Date / Time SEAFOOD Allergy Unknown SWELLING Uncoded 02/28/24 09:02 Review of Systems Sugical H&P ROS: Negative: Constitution, Cardiovascular, Respiratory, Neurological, Psychiatric, Hem-Onc, Allergic/Immunologic, Gastrointestinal, Genitourinary, Musculoskeletal, Integumentary, Endocrine and Eyes/Ears/Nose/Throat Exam Surgical H&P Exam: Normal: HEENT, Normal: Heart, Normal: Lungs, Normal: Extremities, Normal: Abdomen, Normal: Skin and Normal: Neurological (awake, alert,oriented x 3 ) Plan Diagnosis/Plan: Unchanged ACDF C5-6 pt made aware risk of increased risk bleeding due to asa Time Spent With Patient Time: Total time managing care of this patient today __6__ minutes.
[2024-05-18] MEDS: methocarbamoL 750 MG TABLET PO (07:16)
[2024-05-18] MEDS: Gabapentin 300 MG CAPSULE PO (07:16)
[2024-05-18] MEDS: Lactated Ringers 1,000 ML 100 ML IVCONT (07:20)
[2024-05-18] MEDS: Insulin Lispro 100 UNIT/ML 3 ML VIAL SUBCUT (07:24)
--- NOTE | 2024-05-18 07:26 | PC.NURSE ---
md mallory aware of th asa and md cantu aware of the blood sugar.
--- NOTE | 2024-05-18 07:36 | P.DS_ITS ---
DS: Providers Provider Date of Service: 05/18/24 Date of discharge: 05/18/24 Primary care physician: LEON Barros Admitting clinician: Alexandre Oavlles DS: Diagnosis Discharge Diagnosis (1) 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: Status: Acute DS: Summary Time Attestation Discharge Coordination Time (in mins): 4 Quality: Safe Use of Opioids Does Pt have an Active Cancer Diagnosis on the Problem List?: No Quality: Stroke Does the patient have a stroke diagnosis?: No Physical Exam Vital Signs: Vital Signs: Last Vital Signs Temp 98.0 F 05/18/24 06:25 Pulse 67 05/18/24 06:25 Resp 16 05/18/24 06:25 BP 168/82 H 05/18/24 06:25 Pulse Ox 97 05/18/24 06:25 O2 Del Method Room Air 05/18/24 06:25 BMI result Body Mass Index 32.3 DS: Data Data Completed and Pending Labs on day of discharge: Laboratory Results - last 24 hr 05/18/24 06:32 POC Glucose 323 H Discharge Plan Discharge Patient Disposition: Home, Self-Care Referrals: Beverley Kirk PA [Primary Care Provider] - 1 Week Discharge Medications: New oxycodone 5 mg tablet See Rx Instructions .ROUTE .COMPLEX PRN (Reason: pain) Qty: 30 0RF Rx Instructions: 1-2 tabs po q4 hours prn pain; Partial Fill upon patient request. Continued Mounjaro 2.5 mg/0.5 mL pen injector 2.5 mg subcut QWEEK Qty: 2 3RF Rx Instructions: for 4 weeks atorvastatin 20 mg tablet 20 mg PO BEDTIME Qty: 90 3RF codeine-guaifenesin 10-100 mg/5 mL liquid 5 ml PO Q6H PRN (Reason: cough) 5 Days Qty: 200 0RF oxycodone-acetaminophen 10-325 mg tablet 1 tab PO Q12H PRN (Reason: pain) 28 Days Qty: 56 0RF Janumet 50-1,000 mg tablet 1 tab PO BID gabapentin 800 mg tablet 800 mg PO TID 30 Days Qty: 90 0RF losartan 50 mg tablet 50 mg PO DAILY 90 Days Qty: 90 0RF (DME) OneTouch Verio test strips Strip See Rx Instructions .Route Qty: 100 5RF Rx Instructions: Test blood glucose up to three times daily (DME) lancets [OneTouch Delica Plus Lancet] 33 gauge misc See Rx Instructions .Route Qty: 100 5RF Rx Instructions: test blood glucose up to three times daily (DME) blood-glucose meter Misc See Rx Instructions .Route Qty: 1 0RF Rx Instructions: As directed epinephrine [EpiPen] 0.3 mg/0.3 mL auto-injector 0.3 mg IM ONCE PRN (Reason: anaphylaxis) Qty: 2 0RF Rx Instructions: call 911 if medication is administered Held aspirin [Adult Aspirin Regimen] 81 mg tablet,delayed release (DR/EC) 81 mg PO DAILY Hold Instructions: Resume on 05/25/24. Resume aspirin 1 week after surgery Discharge Orders: Discharge Order (Routine); Ordered 05/18/24 Ordered By: Chip Hodge Diet: Advance to usual diet Activity on Discharge: As tolerated Activity Restrictions/Additional Instructions: After your spinal surgery we ask you to observe the following restrictions/guidelines: Activity: It is normal to feel some discomfort as you increase your activity, but that will improve with time. We ask you avoid heavy lifting or acitivities that cause pain. As a general rule, 8lbs is a safe limit for lifting right after surgery. Walk as much as you feel comfortable but not to exhaustion. You will feel extra tired the first few days after surgery. Stay well hydrated. It is OK to walk up and down stairs You may return to driving when you are off narcotics (such as vicodin, oxycodone, dilaudid, etc), and you are back to normal functional capacity. If you have any concerns please check with office before driving. Return to work is specific to each patient and each surgery, so please speak with your doctor/PA at first follow up. Please bring paperwork such as FMLA at that time if you need it filled out. Medications: You may resume aspirin 1 week For optimum pain control, it is best to start with a combination of 500 mg of Tylenol every 4 hours with 600 mg of Motrin every 8 hours, and use narcotics as needed in between for breakthrough pain. We will give you a short supply of narcotics after surgery (usually one weeks worth). If you need more please call the office but do not use more than prescribed. You will need to give our office 48 hours notice if you need narcotics refilled and we do not fill narcotics on weekends or evenings. If you are on a narcotic, it is a good idea to take a stool softener such as colace or senna to avoid constipation If you take blood thinner such as aspirin, Plavix, Coumadin, Effient, Eliquis etc for conditions such as Afib, DVT, Pulmonary embolus, coronary disease, stents etc please speak with your surgeon about specific details as to when you can resume these medications. You can resume NSAIDs on post op day 1 (eg: Motrin, Naproxen, etc). Follow up: Please call the office, , after surgery to arrange a 3 week follow up for wound check. Wound Care: You may remove your dressing on the first day after surgery. ?You may ?leave open to air. Please do not remove the steri strips underneath. they will fall off on their own in one week. IT IS NORMAL FOR THE WOUND TO OOZE OR BE BLOODY FOR A FEW DAYS AFTER SURGERY. ?IF THIS HAPPENS JUST PLACE NEW DRESSING OVER IT TO AVOID STAINING CLOTHES. You may shower on post op day # 1 We ask that you do not let the water soak the wound. If it does get wet, just towel dry lightly. Please do not scrub your incision or place any type of chemical/ointment on the wound. No tub baths, pools or jacuzzis for one month. If you have any leaking or redness from your wound, or fevers, please call office Print Language: Portuguese
--- NOTE | 2024-05-18 09:27 | P.OP_ITS ---
Operative Note Operative Note Date of Service: 05/18/24 Narrative: Preoperative Diagnosis: Cervical myelopathy Procedure: C5-C6 Anterior discectomy, arthrodesis and implantation cage ; C5-C6 anterior instrumentation ; local autograft; microscope Informed Consent was obtained for this operation. I have explained the nature, purpose and benefits of the operation. I have discussed the risks and benefit of the operation including possible complications or adverse events with patient/fa jenna. Alternative(s) were discussed with the patient with their relative benefits and risks as well as the consequences of not accepting the operation were included in obtaining consent. Surgeon: JORDAN ALEGRIA MD, PHD Procedure Assisted By: Chip QUINTERO Description of Procedure: This 48-year-old male suffering from progressive cervical myelopathy due to severe spinal cord compression C5-C6 with myelomalacia. He was offered an anterior diskectomy and fusion of this level. The patient gives aspirin to 2 days prior to surgery and therefore we notified the patient that is in an in creased risk of postoperative hematoma but due to the neurological compromise, we will proceed. The procedure complications were explained. The patient was consented. The patient was brought to the operating room and endotracheally intubated. The patient was put in supine position with slight extension of the neck. Prep and drape was done followed by timeout. A mid cervical incision was made followed by opening of the platysma. The prevertebral fascia was reached following the natural planes while the physician funeral director's assistant provided manual retraction. The prevertebral fascia was opened to expose the disc space. A spinal needle was placed in the disk space to confirm the correct level with xray. The longus colli muscles were released bilaterally and a self retaining retractor was inserted. Two [place] pins were placed in the C5-C6 vertebral bodies and distraction was give over the interspace. The discectomy was completed toward the posterior annulus of the disc. The microscope was brought in. The remainder of the discectomy was completed using the high-speed drill. Several layers of posterior ligament were encountered before we finally saw the dura. The posterior ligament was opened and resected to expose the underlying dura. Osteophytes were resected from the body of C5-C6 and saved for autograft. Bilateral foraminotomies were done. In the midline ongoing indentation of the d ura was present. A partially ossified PLL was resected which relieves the central indentation and finalize the decompression of the spinal cord. The endplates were prepared after which a 6 mm cage filled with autograft was inserted into the disc space. A separate attached plate was locked down with 2 x 14 mm screws as anterior instrumentation. Final x-rays in AP and lateral projection showed a satisfactory position of the implant. The physician funeral director's assistant took over. The [place] pin was removed. Hemostasis was done. He closed the incision in 2 layers with a 3-0 Vicryl. Steri-Strips used to approximate incision. An OpSite with Tegaderm was used to cover the incision. All sponge and needle counts were correct. Patient was extubated and transported in stable is to recovery room. Anesthesia: General Estimated Blood Loss (ml): 20 mL Duration of Surgery: 90 minutes Postoperative Plan: Discharge home Complications: None
[2024-05-18 09:47] LABS: Glucose, Whole Blood 255 mg/dL (60-115)
[2024-05-18] MEDS: fentaNYL citrate/PF 100 MCG/2 ML VIAL 25 MCG IVPUSH ×4 (09:58→10:13)
[2024-05-18] MEDS: oxyCODONE HCl Immed Release 5 MG TABLET PO (10:08)
[2024-05-18] MEDS: Labetalol HCL 100 MG/20 ML VIAL IVPUSH ×2 (10:23→10:33)
== END 2024-05-18 11:35 | disposition home or self-care (01) ==
PROVIDERS: PCP Physician Assistant Medical; Visit Provider Neurological Surgery
PROC: (CPT 22551; principal; 2024-05-18 07:30)
DX: G95.9 Disease of spinal cord, unspecified (principal); M54.12 Radiculopathy, cervical region; M54.40 Lumbago with sciatica, unspecified side; E11.9 Type 2 diabetes mellitus without complications; I10 Essential (primary) hypertension; Z79.82 Long term (current) use of aspirin; Z79.84 Long term (current) use of oral hypoglycemic drugs; Z79.85 Long-term (current) use of injectable non-insulin antidiabetic drugs; Z79.899 Other long term (current) drug therapy; F17.210 Nicotine dependence, cigarettes, uncomplicated
CPT/HCPCS: 22551; 22853; 20936; 22845; 82947; 93005; C1713; C1889; J0131; J0690; J1100; J1596; J1920; J2250; J2405; J2704; J3010

== ENCOUNTER → 2024-05-18 06:00 | Outpatient (BNV) | payer OTHER, SELFPAY | PROVIDERS: PCP Physician Assistant Medical; Visit Provider Neurological Surgery | DX: M50.022 Cervical disc disorder at C5-C6 level with myelopathy (principal); M54.12 Radiculopathy, cervical region; G95.9 Disease of spinal cord, unspecified | CPT/HCPCS: 20936; 22551; 22845; 22853; 99499 ==

== ENCOUNTER 2024-06-12 09:16 | Outpatient (AMB) | payer OTHER, SELFPAY ==
--- NOTE | 2024-06-12 10:32 | HO.SPINEOV ---
Intake Visit Reasons: 1st post op Intake Note: Mr. Peralta is here today for his 1st post-op. [employer]er [employer]semblies Required: No Allergies SEAFOOD Allergy (Unknown, Uncoded 02/28/24 09:02) SWELLING Assessment & Plan Assessment & Plan (1) Cervical myelopathy: Code(s): G95.9 - Disease of spinal cord, unspecified Category: Medical Plan Procedure: C5-6 ACDF Kevan comes in today for his 1st postoperative visit. To recap he had a C5-6 ACDF completed by our service to address his cervical myelopathy. He was initially evaluated for neck pain with shooting pains down his bilateral arms. He reports that his symptoms have modestly improved since surgery. He reports about 50% reduction in his bilateral arm pain and neck pain. He still has quite a bit of numbness/tingling near the distal portion of his forearms into the hands. He continues to take his prescribed oxycodone for breakthrough pain. No new neurological deficits. Patient is able to ambulate well, rises from a seated position without difficulty. Anterior incision site is closed, well healing, with no signs of drainage. We will follow-up with the patient in 6 weeks for their 2nd postoperative visit. At that time we will get x-rays to review with the patient. I refilled his oxycodone for him and sent into the pharmacy here at [facility] per the patient's request. Landon Ovalles MD,PhD [facility] Medications: Changed From oxycodone 1-2 tabs po q4 hours prn pain; Partial Fill upon patient request. 30 tabs 0RF pain To oxycodone 5 mg PO Q6H PRN 30 tabs 0RF pain Refilled oxycodone 5 mg PO Q6H PRN 30 tabs 0RF breakthrough pain, severe Coding Level of Care Code Global (82155) Diagnoses Cervical myelopathy G95.9
== END 2024-06-12 10:41 | disposition home or self-care (01) ==
PROVIDERS: PCP Physician Assistant Medical; Visit Provider Physician Assistant
DX: G95.9 Disease of spinal cord, unspecified (principal)
CPT/HCPCS: 99024

== ENCOUNTER → 2024-06-12 09:16 | Outpatient (BNVA) | payer OTHER, SELFPAY | PROVIDERS: PCP Physician Assistant Medical; Visit Provider Physician Assistant | DX: G95.9 Disease of spinal cord, unspecified (principal) | CPT/HCPCS: 99212 ==

== ENCOUNTER 2024-06-13 12:48 | Outpatient (REF) | payer OTHER, SELFPAY ==
--- NOTE | ~2024-06-13 | MR_ITS ---
EXAMINATION: MRI NECK WITHOUT AND WITH CONTRAST CLINICAL INFORMATION: Localized swelling/mass in the neck. COMPARISON: Cervical spine MRI from 04/11/2024. Neck ultrasound from 03/09/2024. TECHNIQUE: MRI of the neck was obtained using routine sequences without and following the administration of 10 mL of Gadavist intravenous contrast. . FINDINGS: No significant cutaneous thickening or subcutaneous inflammation. There is a tissue marker along the right lateral neck with subjacent thickening of the subcutaneous adipose tissue, measuring approximately 2 x 1.1 x 2.5 cm. In this location, there is normal signal dropout on fat-saturated images and no demonstrated abnormal enhancement. No discrete fluid collection within the deep tissues of the neck. The premaxillary, retromaxillary, pterygopalatine fossa, orbital apical, parapharyngeal, and prelaryngeal adipose tissue is maintained. Normal appearance of the parotid, submandibular, and thyroid glands. Scattered subcentimeter lymph nodes bilaterally, none of which are pathologically enlarged or abnormally enhancing. No demonstrated focal lesion or abnormal enhancement within the intrinsic tissues of the tongue or floor of mouth. Normal mucosal contours of the pharynx and larynx without abnormal enhancement. Instrumented anterior fusion of C5-C6. Straightening of the normal cervical lordosis. Moderate to advanced multilevel degenerative disc disease from C3-C7. There appears to be a degree of spinal canal stenosis from C3-C6. There is no prevertebral soft tissue swelling. The flow voids of the major cervical vessels are maintained. Complete opacification of an atelectatic right maxillary sinus. Mild mucosal thickening of the remaining paranasal sinuses. Moderate rightward nasal septal deviation. No signal abnormalities within the mastoids. The visualized lung apices and upper mediastinum are within normal limits. MR/MR orbits face neck wo/w con IMPRESSION: 1. A soft tissue marker along the right lateral neck correlates with thickening of the subcutaneous adipose tissue, suggestive of an underlying lipoma. No demonstrated suspicious features. 2. No additional soft tissue abnormalities of the neck. No cervical lymphadenopathy. 3. Moderate multilevel degenerative spondyloarthropathy of the cervical spine. There appears to be a degree of spinal canal stenosis from C3-C6. 4. Complete opacification of an atelectatic right maxillary sinus. Electronically signed by: Norberto Wong DO 08/07/2024 05:31 AM [facility]
[2024-06-13] MEDS: gadobutroL 10 ML VIAL IVPUSH (14:01)
== END 2024-06-13 12:49 | disposition home or self-care (01) ==
LOC: HO.MRI 12:48
PROVIDERS: PCP Physician Assistant Medical; Visit Provider Physician Assistant Medical
DX: R22.1 Localized swelling, mass and lump, neck (principal)
CPT/HCPCS: 70543; A9585

== ENCOUNTER 2024-07-13 08:40 | Outpatient (AMB) | payer OTHER, SELFPAY ==
--- NOTE | 2024-07-13 08:50 | MHC.PC.OV ---
Vital Signs 07/13/24 08:52 07/13/24 09:03 Height 6 ft Weight 235 lb 8 oz BMI 31.9 BP 146/84 H 132/74 Blood Pressure Location Rt brachial Rt brachial Position Sitting Pulse 90 Pulse Source Pulse Oximeter Pulse Oximetry (%) 99 Oxygen Delivery Method Room Air Intake Visit Reasons: diabetes follow up Intake Note: Follow up diabetes. Has been out of all medications except the Oxycodone since his last visit in March. Allergies SEAFOOD Allergy (Unknown, Uncoded 07/13/24 08:51) SWELLING Tobacco use date assessed: 04/13/24 HPI HPI Comments History of Present Illness Details This is a 48-year-old male with a past medical history of uncontrolled type 2 diabetes, hypertension, hyperlipidemia and lumbar and cervical radiculopathy presenting for follow up. Chronic back pain and neck pain-The patient underwent C5-6 ACDF on 05/18/[address] Ovalles. He reports improvement in pain, but he still has pain in his neck and forearms and numbness and tingling in the distal portions of his forearms into his hands. He is going to follow up in the neuro spine clinic in July. 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 Antonio Quiñones. He prescribed the patient's Gabapentin and Percocet. The patient has run out of gabapentin and requests a refill because it helps. Patient was also evaluated in the spine clinic for lumbar radiculopathy, and he does have MRI showing surgical pathology which we will have to be addressed in the future. His current regimen for pain is gabapentin 800 mg 3 times a day and Percocet 10/325 mg twice daily. He tries to take it twice a day, but he has significant breakthrough pain sometimes. He is requesting a dose increase. He uses a cane to ambulate. No falls recently. Patient says that the pharmacy has been dispensing a different lead manufactured Percocet pill that his white instead of yellow, and it causes significant nausea and sometimes vomiting. He requests the next prescription specified that it has to be the yellow tablet without substitution. Tobacco use- He smokes less than 1/2 pack per day. The insurance did not cover patches. PFT is pending, and he is reminded to have his chest x-ray completed. Patient requests cough medication with codeine. He coughs more in the night during the fall. Patient says he does not have a history of asthma and was never told he has COPD if he does. Denies frequent pulmonary infections and bronchitis. He has an albuterol inhaler. Denies hemoptysis. Type 2 diabetes-hemoglobin A1c 8.8% on 02/18/2024 and today is 11.6%. Patient is off Ozempic due to stomach upset. He was never able to get Mounjaro from the pharmacy. He ran out of BECC months ago and did not notify the office. He does not have a glucometer with him today. Patient says he is not checking his glucose regularly. Patient denies blurry vision, dizziness, lethargy. He endorses polyuria and polydipsia. Hypertension-BP normal since starting Losartan. He had a negative stress echo in 2019. No dizziness. Hyperlipidemia-patient says he ran out of the atorvastatin or possibly never picked it up. His prior records note ?claudication,? and he says he had surgery for 1 of the blood vessels in his left leg to ?open it up. ? He has a history of left 3rd toe amputation. Takes ASA 81 mg daily. Neck lump-He has the ultrasound which showed a mass and MRI was completed, but the result is still pending. 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 Patient says that having his dog significantly lifts his spirits despite his multiple medical conditions and chronic pain and decreases anxiety and stress. Letter provided for patient. ROS: Constitutional: No unexplained weight loss, fever, chills or night sweats. Eyes: No vision changes Respiratory: No shortness of breath or sputum production. Denies wheezing. Cardiovascular: No chest pain, chest pressure or chest discomfort. No palpitations. Gastrointestinal: No anorexia, nausea, vomiting or diarrhea. No blood in stool. Genitourinary: No dysuria, hematuria, urinary frequency. Neurologic: No headache, dizziness, syncope Musculoskeletal: see HPI Psychiatric: No SI/HI. See HPI. Physical exam: Constitutional: Alert, in no distress. Ambulates with cane. Head: Normocephalic. Eyes: Pupils are equal, round and reactive to light. Neck: Supple, Full range of motion. Palpable right submandibular mass. Respiratory: Clear to auscultation. Cardiovascular: S1 S2 regular. No murmurs. Psychiatric: Normal mood and affect PFSH Medical History (Updated 07/14/24 @ 08:38 by LEON Barros) Chronic cough Microalbuminuric diabetic nephropathy Sinus congestion Opacified maxillary sinus Lumbosacral radiculopathy 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 Cervical stenosis of spinal canal Gallbladder polyp Cervical radiculopathy Tobacco use disorder Claudication in peripheral vascular disease Positive depression screening Lump on neck Lumbar radiculopathy Compression fracture of body of thoracic vertebra Pure hypercholesterolemia Essential hypertension Uncontrolled type 2 diabetes mellitus with hyperglycemia Back disorder High blood pressure High blood cholesterol Diabetes Surgical History History of abdominal surgery Amputation of third toe, left, traumatic Family History Mother High blood pressure Diabetes Maternal Uncle Diabetes High blood pressure Social History Household Members: None Both parents involved: No Caregiver staying overnight: No Housing: Apartment Are you a primary senior care assistant to a significant other at home: No Do you presently have visiting nurse or other home services: No 75 years or older and lives alone: No Alcohol intake: current Alcohol intake frequency: holidays/special occasions only Comment: on occasion Patient Tobacco Use Status: Current everyday Tobacco user Tobacco use type: Cigarette Cigarettes Per Day: 5 e-Cigarette/Vaping Use: Never Used Substance Use Type: Marijuana service: No Current occupational status: disabled Cognitive needs: No Hearing needs: No Vision needs: Yes (Patient wears glasses) Questionnaire Thrive Questionnaire Date Thrive assessed: 02/28/24 I am a: Patient What is your living situation today?: I have a steady place to live Within the past 12 months, did the food you bought not last and you didn't have the money to get more?: Often true Within the past 12 months, did you worry whether your food would run out before you got money to buy more?: Sometimes True Do you have trouble paying for medicines?: No Do you have trouble getting transportation to medical appointments?: Yes Do you have trouble paying your heating and electricity bill?: Yes Do you have trouble taking care of your child, family member or friend?: No Do you have trouble with day-to-day activities such as bathing, preparing meals, shopping, managing finances, etc.?: Yes Are you currently unemployed and looking for a job?: Yes Are you interested in more education?: No Please select the resources that you would like help with: Utilities Currently or been in a relationship where the following occur: I choose not to answer THRIVE Score: 4 AUDIT C Alcohol Use Questionnaire (AUDIT-C) 1. How often do you have a drink containing alcohol?: Never Total Score: 0 JOSE-7 AMB Questionnaire JOSE-7 Date JOSE - 7 assessed: 02/28/24 Feeling nervous, anxious, or on edge: 0 = Not at all Not being able to stop or control worryin = Not at all Worrying too much about different things: 0 = Not at all Trouble relaxin = Several days Being so restless that it is hard to sit still: 1 = Several days Becoming easily annoyed or irritable: 1 = Several days Source: Developed by Drs. Samir Knight, Jimena Aguila, Jose Blancas and colleagues, with an educational gin from [employer]. Physical exam (Primary Care) Vital Signs: Last Vital Signs Pulse 90 07/13/24 08:52 BP 132/74 07/13/24 09:03 Pulse Ox 99 07/13/24 08:52 Oxygen Delivery Method Room Air 07/13/24 08:52 BMI result Body Mass Index 31.9 Tobacco/Smoking Status: Tobacco use Status Tobacco use date assessed 04/13/24 07/13/24 08:51 Patient Tobacco Use Status Current everyday Tobacco 07/13/24 08:51 Tobacco use type Cigarette 07/13/24 08:51 e-Cigarette/Vaping Use Never Used 07/13/24 08:51 Thrive Assessment: Date of Thrive Assessment Date Thrive assessed 02/28/24 07/13/24 08:51 Currently or been in a relationship where the following occur: I choose not to answer Office Procedures Flu Questionnaire Does the patient have a severe egg allergy?: No Does the patient have severe life threatening allergies?: No Does the patient have a fever or illness today?: No Has the patient ever had Guillain-[place] Syndrome?: No Has the patient ever had any past reaction to a flu shot?: No Results AMB Hemoglobin A1c AMB Hemoglobin A1c 11.6 % Last Edit by Lisandra Stuart CMA on 07/13/24 09:24 Immunizations Fluarix Triv [id number] (PF) 45 mcg (15 mcg x 3)/0.5 mL IM syringe Performing Provider: LEON Barros Performing Location: [facility] Administered by: Lisandra Stuart CMA on 07/13/24 15:50 Dose Route Admin Location Dispensed Lot Number Expiration Date NDC Cager Operator 0.5 mL IM Right Deltoid 0.5 mL [id number] 02/19/25 [id number] [facility] VIS Given Date VIS Provided VIS Publication Date 07/13/24 Single Vaccine 21 Eligibility Eligibility Date Funding Source Not [facility] Eligible 07/13/24 Private Results Reviewed Results Reviewed: Laboratory Last Values Hgb A1c (Clinic) 11.6 % (4.0-6.0) H 07/13/24 09:23 Coding Level of Care Code Est Pt Level 5 (87695) Complex EM visit Add On G2211 Diagnoses Uncontrolled type 2 diabetes mellitus with hyperglycemia E11.65 Chronic cough R05.3 Microalbuminuric diabetic nephropathy E11.21 Lumbosacral radiculopathy M54.17 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 G95.9; M54.12 Tobacco use disorder F17.200 Essential hypertension I10 Pure hypercholesterolemia E78.00 Time Spent (min) 47 Comment Chart review, direct patient care, completing documentation Assessment & Plan Assessment & Plan (1) Uncontrolled type 2 diabetes mellitus with hyperglycemia: Code(s): E11.65 - Type 2 diabetes mellitus with hyperglycemia Category: Medical (2) Chronic cough: Code(s): R05.3 - Chronic cough Category: Medical (3) Microalbuminuric diabetic nephropathy: Code(s): E11.21 - Type 2 diabetes mellitus with diabetic nephropathy Category: Medical (4) Lumbosacral radiculopathy: Code(s): M54.17 - Radiculopathy, lumbosacral region Category: Medical (5) 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: Code(s): G95.9 - Disease of spinal cord, unspecified; M54.12 - Radiculopathy, cervical region Category: Medical (6) Tobacco use disorder: Code(s): F17.200 - Nicotine dependence, unspecified, uncomplicated Category: Medical (7) Essential hypertension: Code(s): I10 - Essential (primary) hypertension Category: Medical (8) Pure hypercholesterolemia: Code(s): E78.00 - Pure hypercholesterolemia, unspecified Category: Medical Plan Type 2 diabetes Patient has micro and macrovascular complications. Continue Arb for renal protection and microalbuminuria. Insurance will not cover Janumet. Sent metformin with instructions to increase medication. Side effects reviewed with the patient. Resubmitted [place]. This will require prior authorization. CGM is medically necessary as the patient has neuropathy/myelopathy in his upper extremities due to cervical disc disease which interferes with fingerstick glucometer monitoring. Submitted Axial Art 3 plus to the pharmacy which will also require prior authorization. Refer to endocrinology. Hypertension Continue losartan 50 mg daily. Recommended smoking cessation. Hyperlipidemia and peripheral vascular disease LDL goal less than 70. Sent atorvastatin to pharmacy anew. Recommended Mediterranean diet and ongoing efforts at weight loss. Continue baby aspirin 81 mg daily. Lumbar radiculopathy, cervical radiculopathy, chronic pain Continue gabapentin 800 mg 3 times daily. Trial increase of Percocet 10/325 mg 3 times a day as needed for pain. We reviewed this is addictive, habit-forming medication. We reviewed side effects of the medication in detail. We discussed it is sedating and causes drowsiness. He should not drive or operate heavy machinery with the side effects. Patient will return in a month to sign [facility] UDS will be done today. He will follow up at the neuro spine clinic as planned. Tobacco use disorder, chronic cough See HPI regarding pulmonary tests. Referred to pulmonology. Strongly recommended smoking cessation. Refill given on cough medication. Patient advised not to take this when he takes Percocet. Stagger by 4-6 hours. Advised the medication is sedating and can cause drowsiness and impaired motor function. Do not drive or operate heavy machinery with it. Follow up in 4 weeks. Orders: Orders AMB Hemoglobin A1c 07/13/24 E11.65 - Type 2 diabetes mellitus with hyperglycemia AMB 12 Panel Urine Drug Screen 07/13/24 Z51.81 - Encounter for therapeutic drug level monitoring Comprehensive Met. Panel 07/13/24 E11.65 - Type 2 diabetes mellitus with hyperglycemia Influenza [id number] Immunization 07/13/24 Z23 - Encounter for immunization Microalbumin, Random (w Creat) 07/13/24 E11.65 - Type 2 diabetes mellitus with hyperglycemia Referrals Endocrinology Referral E11.65 - Type 2 diabetes mellitus with hyperglycemia Pulmonology Referral F17.200 - Nicotine dependence, unspecified, uncomplicated, R05.3 - Chronic cough Medications: New aspirin (Adult Aspirin Regimen) 81 mg PO DAILY 90 tabs 3RF metformin ER Take 1 tablet PO BID for 1 week then increase to 2 tablets BID. 90 tabs 0RF Refilled atorvastatin 20 mg PO BEDTIME 90 tabs 3RF losartan 50 mg PO DAILY 90 days 90 tabs 3RF tirzepatide (Mounjaro) for 4 weeks 2.5 mg (0.5 mL) subcut QWEEK 2 mL 3RF gabapentin 800 mg PO TID 30 days 90 tabs 0RF codeine-guaifenesin 10-100 mg/5 mL 5 mL PO Q6H 5 days PRN 200 mL 0RF cough Patient Instructions: Do not take Janumet. Instead take Metformin 1 tab twice daily for a week and then 2 tabs twice daily. When you get Mounjaro start 2.5 mg once weekly. Restart Losartan and Atorvastatin and Aspirin.
[2024-07-13 08:52] VITALS: BP 146/84; PULSE 90; O2SAT 99; BMI 31.9
[2024-07-13 09:03] VITALS: BP 132/74
== END 2024-07-13 09:46 | disposition home or self-care (01) ==
PROVIDERS: PCP Physician Assistant Medical; Visit Provider Physician Assistant Medical
DX: E11.65 Type 2 diabetes mellitus with hyperglycemia (principal); E11.21 Type 2 diabetes mellitus with diabetic nephropathy; G95.9 Disease of spinal cord, unspecified; R05.3 Chronic cough; M54.17 Radiculopathy, lumbosacral region; M54.12 Radiculopathy, cervical region; F17.200 Nicotine dependence, unspecified, uncomplicated; I10 Essential (primary) hypertension; E78.00 Pure hypercholesterolemia, unspecified

== ENCOUNTER 2024-07-13 10:12 | Outpatient (REF) | payer OTHER, SELFPAY ==
[2024-07-13 11:44] LABS: Alanine Aminotransferase 6 U/L (0-40); Albumin Level 3.7 g/dL (3.5-5.0); Anion Gap 10 (12-20); Aspartate Amino Transferase 17 U/L (5-37); Bilirubin Total 0.4 mg/dL (0.0-1.0); Blood Urea Nitrogen 17 mg/dL (9-16); Calcium 9.4 mg/dL (8.4-10.2); Carbon Dioxide 24 mmol/L (22-29); Chloride 107 mmol/L (96-108); Cholesterol 193 mg/dL (<200); Estimated Glomerular Filt Rate > 60; Glucose Random 311 mg/dL (60-115); HDL Cholesterol 46 mg/dL (>40); LDL Cholesterol Calculated 129 mg/dL (<100); Potassium 4.1 mmol/L (3.3-5.1); Sodium 137 mmol/L (135-145); Total Protein 6.7 g/dL (6.5-8.0); Triglycerides 93 mg/dL (<150)
[2024-07-13 12:11] LABS: Alkaline Phosphatase 70 U/L (39-117)
[2024-07-13 14:49] LABS: Creatinine Urine 168.54 mg/dL
[2024-07-13 15:00] LABS: Microalbum/Creatinine Ratio Ur 1186.6 ug/mg cr (<30); Microalbumin Urine > 2000.0 mg/L
== END 2024-07-13 10:13 | disposition home or self-care (01) ==
LOC: HO.WFDLDS 10:12
PROVIDERS: Visit Provider Physician Assistant Medical
DX: E78.00 Pure hypercholesterolemia, unspecified (principal); E11.65 Type 2 diabetes mellitus with hyperglycemia; R05.3 Chronic cough; E11.21 Type 2 diabetes mellitus with diabetic nephropathy; Z51.81 Encounter for therapeutic drug level monitoring; M54.17 Radiculopathy, lumbosacral region; G95.9 Disease of spinal cord, unspecified; M54.12 Radiculopathy, cervical region; F17.200 Nicotine dependence, unspecified, uncomplicated; Z23 Encounter for immunization; Z79.82 Long term (current) use of aspirin; Z79.899 Other long term (current) drug therapy
CPT/HCPCS: 36415; 80053; 80061; 82043; 82570; 83036; 90471; 90656; 99212

== ENCOUNTER 2024-07-24 09:29 | Outpatient (AMB) | payer OTHER, SELFPAY ==
--- NOTE | 2024-07-24 09:37 | HO.SPINEOV ---
Intake Visit Reasons: 2nd post op with Xrays Intake Note: Mr. Peralta is here today for his 2nd post op visit. Children'S Book Author Required: No Allergies SEAFOOD Allergy (Unknown, Uncoded 07/13/24 08:51) SWELLING Assessment & Plan Assessment & Plan (1) Lumbar stenosis with neurogenic claudication: Code(s): M48.062 - Spinal stenosis, lumbar region with neurogenic claudication Category: Medical Plan Procedure: C5-C6 ACDF HPI: Kevan comes in today for his second post-operative visit. He was initially evaluated in clinic for neck pain with shooting pains down his bilateral arms. He additionally reported numbness / tingling in his bilateral upper extremities, tingling in his fingertips, issues with dexterity, and balance issues. His MRI showed cervical myelopathy due to severe spinal cord compression C5-C6 with myelomalacia. He was consented for a C5-6 ACDF to address his cervical radiculopathy. He understands this was also done as a preventative measure to stop progression of cervical myeloapathy. He reports that his neck pain has continued as a low-grade pain but is overall doing much better. He continues to report a similar numbness/tingling in his bilateral upper extremities as was discussed during his last visit. Kevan wished to discuss his severe low back pain during this visit as well. He has had severe low back pain for the last few years which has worsened over the course of the last year to the point where he is in nearly constant pain. He has difficulty with ambulation can only walk for about 5-10 minutes without having to stop. He asked to use a cane for assistance from walking. He has shooting pains down his bilateral lower extremities. When describing the pain he runs his hand over the lateral aspect of the thigh down the lateral knee to the lateral calf. He says the pain is in the exact same distribution in both legs. Intermittently the tops of his feet will be involved as well. He states that the shooting pain down his legs is no where near as severe as his low back pain. He has been to physical therapy for this, tried [id number] pain medications, pain patches, gels, creams, and is currently on prescribed gabapentin and oxycodone to help mitigate the pain. Physical Exam: On examination he has no new neurological deficits, he ambulates slowly with assistance of a cane, and needs to brace himself on the chair when rising from a seated position. He flexes forward when walking and sitting. He maintains about 4/5 strength with bilateral illiopsoas and deltoid testing. Blue's remains present bilaterally. Clonus still present with 1-2 beats bilaterally. Anterior incision site appears closed, well healing. (+) bilateral straight leg raise. Imaging: MRI of the lumbar spine [place] [facility] [place] shows multi-level lumbar spondylosis with degeneration. At L3-4 there is severe bilateral foraminal stenosis, with moderate central canal stenosis. There is a left sided disc extrusion at L4-5 causing severe left sided foraminal stensosis compressing the L5 nerve root. There is also a posterior disc bulge at L5-S1 with severe bilateral foraminal stenosis at this level. Plan: [facility] concerns, I believe he is still dealing with a protracted post-operative healing course due to the severe myelopathy seen at C5-6. In regards to his low back, I believe he has classic low back pain with neurogenic claudication, and a radicular component due to the disc extrusion seen at L4-5. Because he is complaining of severe low back pain I believe he would be a better candidate for lumbar fusion vs. lumbar decompression L3-S1. A more conservative approach would be multi-level lumbar decompression, but the concern would be instability as a result of this. Simple lumbar decompression also would not treat his primary concern which is low back pain. I would like to discuss this case and imaging with Dr. Ovalles and will call the patient back next week regarding a surgical opinion. Landon Ovalles MD,PhD [facility] Orders: Orders XR cervical spine 2V Today G95.9 - Disease of spinal cord, unspecified Coding Level of Care Code Global (59465) Diagnoses Lumbar stenosis with neurogenic claudication M48.062
== END 2024-07-24 10:33 | disposition home or self-care (01) ==
PROVIDERS: PCP Physician Assistant Medical; Visit Provider Physician Assistant
DX: M48.062 Spinal stenosis, lumbar region with neurogenic claudication (principal)
CPT/HCPCS: 99024

== ENCOUNTER 2024-07-24 09:29 | Outpatient (REF) | payer OTHER, SELFPAY ==
--- NOTE | ~2024-07-24 | XR_ITS ---
EXAMINATION: XR CERVICAL SPINE CLINICAL INFORMATION: Disease of spinal cord, unspecified G95.9. COMPARISON: MR Cervical spine without contrast 04/11/2024 TECHNIQUE: 2 views of the cervical spine were obtained. FINDINGS: Intervertebral disc spacer with anterior screw fixation at C5/6. No evidence of hardware complications. Degenerative disc disease seen at C6/7. Mild bilateral posterior facet joint arthropathy. There is normal vertebral body height and alignment XR/XR cervical spine 2V IMPRESSION: Status post anterior cervical fusion at C5/6. No evidence of hardware complications. Electronically signed by: Nicolás Salas MD 08/15/2024 11:07 AM [facility]
== END 2024-07-24 09:30 | disposition home or self-care (01) ==
LOC: HO.HOSX 09:29
PROVIDERS: PCP Physician Assistant Medical; Visit Provider Physician Assistant
DX: M48.062 Spinal stenosis, lumbar region with neurogenic claudication (principal)
CPT/HCPCS: 72040; 99212

== ENCOUNTER 2024-07-31 09:08 | Outpatient (AMB) | payer OTHER, SELFPAY ==
--- NOTE | 2024-07-31 09:11 | A.OFFVIS_ITS ---
Vital Signs 07/31/24 09:13 Height 6 ft Weight 233 lb 11.04 oz BMI 31.7 BP 148/82 H Blood Pressure Location Rt brachial Position Sitting Pulse 90 Pulse Source Pulse Oximeter Intake Visit Reasons: Type 2 diabetes mellitus/CONF Intake Note: NEW Patient presents today to establish treatment for Type 2 Diabetes Mellitus: Last Diabetic eye exam was on: DUE Last Podiatry exam was on: Does not see a Director Environmental Most recent HbA1c: 11.6%, 07/13/2024 Random Glucose- 318 mg/dL, Today Tire Installer Required: No Accompanied by: Self / Same As Patient Allergies SEAFOOD Allergy (Unknown, Uncoded 07/31/24 09:12) SWELLING Medication List - Last Reconciled 07/31/24 by Debo Brown PA-C aspirin (Adult Aspirin Regimen) 81 mg PO DAILY atorvastatin 20 mg PO BEDTIME blood sugar diagnostic (HigherNextTouch Verio test strips) Test blood glucose up to three times daily blood-glucose meter As directed blood-glucose meter,continuous (FreeStyle Art 3 Sebec) Use daily to monitor blood glucose levels continuously. blood-glucose sensor (FreeStyle Art 3 Plus Sensor device) Apply 1 new sensor every 14 days as directed to monitor blood glucose continuously. codeine-guaifenesin 10-100 mg/5 mL 5 mL PO Q6H PRN 5 days epinephrine (EpiPen) 0.3 mg (0.3 mL) IM ONCE PRN gabapentin 800 mg PO TID 30 days lancets (HigherNextTouch Delica Plus Lancet) test blood glucose up to three times daily losartan 50 mg PO DAILY 90 days metformin ER Take 1 tablet PO BID for 1 week then increase to 2 tablets BID. oxycodone-acetaminophen 10-325 mg 1 tab PO Q12H PRN 28 days HPI HPI Type 2 diabetes mellitus/CONF: Details: Patient is a 48-year-old male with a significant past medical history of back pain, hypertension, hyperlipidemia and uncontrolled type 2 diabetes presenting today to establish care in endocrinology. Endo: States that he was diagnosed with diabetes around 2005. His most recent A1c was 11.6 in the office of this PCP. He was started on Mounjaro as he did not tolerate Ozempic. He is currently on metformin 500 mg bid. He states that today he is supposed to go up to 1000 mg twice a day. He does not like mounjaro because it is causing a too much of a decreased appetite. He states that he does not want to get skinny and he feels like he can not eat with this medication. He last took it on Wednesday. He does not have a sensor. He states that he wants a sensor today and would like to go on insulin. He is on an Kyle/Arb and a statin CV: States that his blood pressures are generally controlled since being on losartan 50 mg. He did not take his medication yet today. Cholesterol is managed with atorvastatin 20 mg however, patient is not normally compliant with this. Vascular: Per PCP note- His prior records note ?claudication,? and he says he had surgery for 1 of the blood vessels in his left leg to ?open it up. ? He has a history of left 3rd toe amputation. He tells me today that this was in 08/2021 per his memory. He can not recall if follow up was required. Takes ASA 81 mg daily. He states when he walks a short distance he will get cramping in his legs and have to stop. [facility] Medical History Chronic cough Microalbuminuric diabetic nephropathy Sinus congestion Opacified maxillary sinus Lumbosacral radiculopathy 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 Cervical stenosis of spinal canal Gallbladder polyp Cervical radiculopathy Tobacco use disorder Claudication in peripheral vascular disease Positive depression screening Lump on neck Lumbar radiculopathy Compression fracture of body of thoracic vertebra Pure hypercholesterolemia Essential hypertension Uncontrolled type 2 diabetes mellitus with hyperglycemia Back disorder High blood pressure High blood cholesterol Diabetes Surgical History History of abdominal surgery Amputation of third toe, left, traumatic Family History Mother High blood pressure Diabetes Maternal Uncle Diabetes High blood pressure Social History Household Members: None Both parents involved: No Caregiver staying overnight: No Housing: Apartment Are you a primary medicare compliance auditor to a significant other at home: No Do you presently have visiting nurse or other home services: No 75 years or older and lives alone: No Alcohol intake: current Alcohol intake frequency: holidays/special occasions only Comment: on occasion Patient Tobacco Use Status: Current everyday Tobacco user Tobacco use type: Cigarette Cigarettes Per Day: 5 e-Cigarette/Vaping Use: Never Used Substance Use Type: Marijuana service: No Current occupational status: disabled Cognitive needs: No Hearing needs: No Vision needs: Yes (Patient wears glasses) Physical Exam Vital Signs: Last Vital Signs Pulse 90 07/31/24 09:13 BP 148/82 H 07/31/24 09:13 BMI result Body Mass Index 31.7 Const Orientation/consciousness: patient oriented x3 Neck Neck: Yes no lymphadenopathy Thyroid: Thyroid normal Carotids: no bruits Resp Auscultation: clear to auscultation bilaterally Cardio Rate: regular rate Rhythm: regular rhythm Heart sounds: S1 normal heart sound present and S2 normal heart sound present Peripheral pulses: dorsalis pedis present (Weak) Neuro General: patient oriented x3, gait normal and no focal motor deficits Extrem Other: Monofilament sensation intact diminished. Vibratory sensation diminished bilaterally. Skin intact. General: Yes normal to inspection Results Reviewed Results Reviewed: Laboratory Tests 07/13/24 07/13/24 07/13/24 09:23 10:13 10:17 Sodium 137 Potassium 4.1 Chloride 107 Carbon Dioxide 24 Anion Gap 10 L BUN 17 H Creatinine 0.93 Estimated GFR > 60 Random Glucose 311 H Hgb A1c (Clinic) 11.6 H Triglycerides 93 Cholesterol 193 LDL Cholesterol, Calc 129 H HDL Cholesterol 46 Urine Creatinine 168.54 Urine Microalbumin > 2000.0 Microalb/Creat Ratio 1186.6 H Assessment & Plan Assessment & Plan (1) Uncontrolled type 2 diabetes mellitus with hyperglycemia: Code(s): E11.65 - Type 2 diabetes mellitus with hyperglycemia Category: Medical Plan: More than 1 hour was spent in [id number] time today discussing the pathophysiology of type 1 and type 2 diabetes. We discussed complications associated with uncontrolled diabetes including amputations, stroke, heart disease, kidney disease, blindness etc.. Signs and symptoms of hyper and hypoglycemia that would require emergent medical treatment were discussed. Reviewed rule of 15. I did provide glucose tabs today. Referral to diabetic Education, ophthalmology, vascular and podiatry. Unfortunately, did not have a sensor to provide patient today in the office. I did order him a Dexcom G7 given the better supply and it does also appear to be covered by his insurance. We will start Lantus 10 units nightly. Pen needles provided. Discussed risks and benefits and adverse effects of the medication. Continue with the metformin and encouraged him to increase the 1000 mg twice a day. I will discontinue Mo unjaro. We will start Trulicity 0.75 mg weekly. He will start this on Wednesday. One-month follow up. Sooner if needed. (2) Amputation of third toe, left, traumatic: Code(s): S98.132A - Complete traumatic amputation of one left lesser toe, initial encounter Category: Surgical Qualifiers: Encounter type: sequela Qualified Code(s): S98.132S - Complete traumatic amputation of one left lesser toe, sequela Plan: Noted. Referral to vascular surgery (3) Essential hypertension: Code(s): I10 - Essential (primary) hypertension Category: Medical Plan: Elevated above goal but did not take his medication today. Discussed the importance of compliance. (4) Pure hypercholesterolemia: Code(s): E78.00 - Pure hypercholesterolemia, unspecified Category: Medical Plan: Recently restarted Lipitor. We will continue to monitor. (5) Claudication in peripheral vascular disease: Code(s): I73.9 - Peripheral vascular disease, unspecified Category: Medical Plan: As above. Referral to vascular surgery. Orders: Referrals Vascular Surgery Referral E11.65 - Type 2 diabetes mellitus with hyperglycemia, E78.00 - Pure hypercholesterolemia, unspecified, I10 - Essential (primary) hypertension, I73.9 - Peripheral vascular disease, unspecified, S98.132S - Complete traumatic amputation of one left lesser toe, sequela Podiatry Referral E11.65 - Type 2 diabetes mellitus with hyperglycemia, E78.00 - Pure hypercholesterolemia, unspecified, I10 - Essential (primary) hypertension, I73.9 - Peripheral vascular disease, unspecified, S98.132S - Complete traumatic amputation of one left lesser toe, sequela Ophthalmology Referral E11.65 - Type 2 diabetes mellitus with hyperglycemia Diabetes Education Referral E11.65 - Type 2 diabetes mellitus with hyperglycemia Medications: New insulin glargine (Lantus Solostar U-100 Insulin) 10 units (0.1 mL) subcut QPM 15 mL 3RF glucose (Dex4 Glucose) until symptoms of low blood sugar are controlled 16 grams (4 x 4 gram) PO Q15M PRN 100 tabs 0RF hypoglycemia dulaglutide (Trulicity) 0.75 mg (0.5 mL) subcut QWEEK 2 mL 3RF blood-glucose meter,continuous (Dexcom G7 Drywall Worker) use daily As directed to monitor blood glucose 1 ea 0RF E11.65 - Type 2 diabetes mellitus with hyperglycemia blood-glucose sensor (Dexcom G7 Sensor device) Use daily As directed to monitor glucose. change q 10 days 3 ea 5RF E11.65 - Type 2 diabetes mellitus with hyperglycemia, Z79.4 - care home (current) use of insulin pen needle, diabetic (BD Kary 2nd Gen Pen Needle) Use once daily As directed 100 ea 3RF Discontinued tirzepatide (Mounjaro) for 4 weeks Discontinued Reason: Doctor's Order 2.5 mg (0.5 mL) subcut QWEEK 2 mL 3RF blood-glucose meter,continuous (FreeStyle Art 3 Sebec) Discontinued Reason: Doctor's Order Use daily to monitor blood glucose levels continuously. 1 ea 0RF E11.65 - Type 2 diabetes mellitus with hyperglycemia blood-glucose sensor (FreeStyle Art 3 Plus Sensor device) Discontinued Reason: Duplicate Apply 1 new sensor every 14 days as directed to monitor blood glucose continuously. 2 ea 11RF E11.65 - Type 2 diabetes mellitus with hyperglycemia Coding Level of Care Code New Pt Level 5 (39268) Complex EM visit Add On G2211 Diagnoses Uncontrolled type 2 diabetes mellitus with hyperglycemia E11.65 Traumatic amputation of third toe of left foot, sequela S98.132S Encounter type: sequela Essential hypertension I10 Pure hypercholesterolemia E78.00 Claudication in peripheral vascular disease I73.9
[2024-07-31 09:13] VITALS: BP 148/82; PULSE 90; BMI 31.7
[2024-07-31 09:24] LABS: Glucose, Whole Blood 318 mg/dL (60-115)
== END 2024-07-31 09:49 | disposition home or self-care (01) ==
PROVIDERS: PCP Physician Assistant Medical; Visit Provider Physician Assistant
DX: E11.65 Type 2 diabetes mellitus with hyperglycemia (principal); S98.1 Traumatic amputation of one toe; I10 Essential (primary) hypertension; E78.00 Pure hypercholesterolemia, unspecified; I73.9 Peripheral vascular disease, unspecified

== ENCOUNTER → 2024-07-31 09:08 | Outpatient (BNVA) | payer OTHER, MEDICAID, SELFPAY | PROVIDERS: PCP Physician Assistant Medical; Visit Provider Physician Assistant | DX: E11.65 Type 2 diabetes mellitus with hyperglycemia (principal); I10 Essential (primary) hypertension; E78.00 Pure hypercholesterolemia, unspecified; I71.9 Aortic aneurysm of unspecified site, without rupture; S98.1 Traumatic amputation of one toe | CPT/HCPCS: 82947; 99202 ==

== ENCOUNTER 2024-08-08 10:07 | Outpatient (AMB) | payer OTHER, SELFPAY ==
--- NOTE | 2024-08-08 10:16 | A.OFFVIS_ITS ---
Vital Signs 08/08/24 10:17 Height 6 ft Weight 233 lb BMI 31.6 Intake Visit Reasons: PROGRAM SERVICES ASSISTANT/Endo ref for PAD w/ Hx in [place] Intake Note: Patient states he has history of PAD. Had vascular procedure around 3 years ago. Has bilateral leg pain , cramping and numbness on and off. Accompanied by: Self / Same As Patient Allergies SEAFOOD Allergy (Unknown, Uncoded 07/31/24 09:12) SWELLING HPI HPI PROGRAM SERVICES ASSISTANT/Endo ref for PAD w/ Hx in [place]: Details: Kevan, a pleasant 48-year-old male patient, is being referred by his bottom pounder cement shoes for ongoing bilateral lower extremity cramping, swelling, and pain. Complaints include pain, swelling of lower extremities, cramping, fatigue, and heaviness of the lower extremities. It has been affecting their daily activities including walking. It is noted more so in left slightly worse than the right leg. He currently smokes 1 pack of cigarettes every 3 days. He is a diabetic in his last A1c was 11.6% on 07/03/2024. Patient has had some procedure in his left lower extremity quite a few years ago, he does not know what it was. He has a partial L3 toe amp due to an infection in his toenail. Patient denies any history of DVT/ PE. Patient denies any history of phlebitis. Trial of compression includes - elevation with a little relief They now present for vascular evaluation regarding their varicose veins. [facility] Medical History Chronic cough Microalbuminuric diabetic nephropathy Sinus congestion Opacified maxillary sinus Lumbosacral radiculopathy 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 Cervical stenosis of spinal canal Gallbladder polyp Cervical radiculopathy Tobacco use disorder Claudication in peripheral vascular disease Positive depression screening Lump on neck Lumbar radiculopathy Compression fracture of body of thoracic vertebra Pure hypercholesterolemia Essential hypertension Uncontrolled type 2 diabetes mellitus with hyperglycemia Back disorder High blood pressure High blood cholesterol Diabetes Surgical History History of abdominal surgery Amputation of third toe, left, traumatic Family History Mother High blood pressure Diabetes Maternal Uncle Diabetes High blood pressure Social History Household Members: None Both parents involved: No Caregiver staying overnight: No Housing: Apartment Are you a primary tree care foreman to a significant other at home: No Do you presently have visiting nurse or other home services: No 75 years or older and lives alone: No Alcohol intake: current Alcohol intake frequency: holidays/special occasions only Comment: on occasion Patient Tobacco Use Status: Current everyday Tobacco user Tobacco use type: Cigarette Cigarettes Per Day: 5 e-Cigarette/Vaping Use: Never Used Substance Use Type: Marijuana service: No Current occupational status: disabled Cognitive needs: No Hearing needs: No Vision needs: Yes (Patient wears glasses) Review of Systems Const Reports as per HPI and Denies weakness ENT Reports Normal hearing present and Denies dizziness Card Reports as per HPI, Denies chest pain, Denies chest pain at rest, Denies chest pain with activity, Denies dyspnea and Denies dyspnea on exertion Resp Reports as per HPI, Denies cough, Denies dyspnea and Denies dyspnea on exertion GI Reports as per HPI, Denies abdominal pain, Denies nausea and Denies vomiting Musc Denies numbness Skin/Breast Reports as per HPI, Denies erythema and Denies wounds Neuro Reports Normal hearing present, Denies dizziness, Denies numbness, Denies Sensory deficit (Neuro) and Denies weakness Psych Reports no additional complaints Endo Reports no additional complaints Physical Exam Vital Signs: BMI result Body Mass Index 31.6 Const General: healthy appearing and no acute distress Orientation/consciousness: patient oriented x3 HEENT Head: Yes normal to inspection Ears: hearing grossly normal bilaterally Mouth: Normal oral and palatal mucosa present Resp Effort & Inspection: normal respiratory effort and able to speak in complete sentences Auscultation: clear to auscultation bilaterally Cardio Jugular venous distension: no JVD Rate: regular rate Rhythm: regular rhythm Heart sounds: S1 normal heart sound present and S2 normal heart sound present Bruits: no abdominal aortic bruits, no carotid bruits, no femoral bruits and no renal bruits Peripheral pulses: Peripheral pulses 2+ throughout GI Inspection: Yes normal to inspection Palpation (GI): No Abdominal aortic bruit present Skin General skin exam: no rashes or lesions noted Wounds: no wounds Hair: normal Neuro General: patient oriented x3 Cranial nerves: Yes Normal hearing present Cognition (Neuro): normal cognition Gait exam (Neuro): Normal gait present Motor exam (neuro): 5/5 motor strength present throughout Sensory Exam: No Sensory deficit (Neuro) Extrem Other: Bilateral lower extremities: Trace peripheral edema noted. Palpable DP pulses. No tortuosities noted. L3 toe: Partial amputation, well healed. CEAP: C - 3 E - primary A - superficial P - reflux General: Yes normal to inspection, Yes full ROM, Yes capillary refill normal and Yes normal gait Assessment & Plan Assessment & Plan (1) Varicose veins of both lower extremities with inflammation: Code(s): I83.11 - Varicose veins of right lower extremity with inflammation; I83.12 - Varicose veins of left lower extremity with inflammation Category: Medical Plan: Kevan is presenting today on a referral from his bottom pounder cement shoes for ongoing bilateral lower extremity cramping, swelling and pain. In short, the patient has evidence of venous insufficiency. I have discussed the pathophysiology with the patient. In addition I have provided informational material regarding venous disease to the patient. We have discussed conservative measures including compression, elevation, and exercise. I have also provided a handout regarding appropriate use of compression stockings and where to purchase good compression stockings as well. I have taken the liberty of ordering venous insufficiency testing with the patient. They will follow up with me after testing. The patient had an opportunity to ask questions regarding the treatment plan. All questions were answered. Imaging studies, laboratory studies and physical exam results were discussed and reviewed in detail. No major barriers to understanding were identified. The patient expressed understanding and agreement with the above treatment plan. The patient is aware they should contact our office by phone for worsening of the current condition or the appearance of new symptoms. Thank you for allowing me to participate in the vascular care of this patient. If you have any questions or concerns regarding the treatment for the above condition please do not hesitate to contact me. The office telephone contact is [phone]. This note is constructed using voice recognition software. While every effort has been made to ensure accuracy, ediscovery project manager errors may have been included. Thank you for allowing me to participate in the care of your patient. Yours sincerely, LEON Ansari Orders: Orders US venous duplex LE BI 1 Week I83.11 - Varicose veins of right lower extremity with inflammation, I83.12 - Varicose veins of left lower extremity with inflammation Coding Level of Care Code New Pt Level 4 (46224) Diagnoses Varicose veins of both lower extremities with inflammation I83.11; I83.12
[2024-08-08 10:17] VITALS: BMI 31.6
== END 2024-08-08 11:13 | disposition home or self-care (01) ==
PROVIDERS: PCP Physician Assistant Medical; Visit Provider Physician Assistant Surgical
DX: I83.11 Varicose veins of right lower extremity with inflammation (principal); I83.12 Varicose veins of left lower extremity with inflammation
CPT/HCPCS: 99204

== ENCOUNTER → 2024-08-08 10:07 | Outpatient (BNVA) | payer OTHER, MEDICAID, SELFPAY | PROVIDERS: PCP Physician Assistant Medical; Visit Provider Physician Assistant Surgical | DX: I83.11 Varicose veins of right lower extremity with inflammation (principal); I83.12 Varicose veins of left lower extremity with inflammation | CPT/HCPCS: 99202 ==

== ENCOUNTER 2024-11-16 11:27 | Outpatient (AMB) | payer MEDICARE, MEDICAID, SELFPAY ==
--- NOTE | 2024-11-16 11:31 | MHC.PC.OV ---
Vital Signs 11/16/24 11:36 Height 6 ft Weight 231 lb 6 oz BMI 31.4 BP 144/78 H Blood Pressure Location Lt brachial Position Sitting Respiration 13 Pulse 92 Pulse Source Pulse Oximeter Temp 97.2 F Temp Source Oral Pulse Oximetry (%) 98 Oxygen Delivery Method Room Air Intake Visit Reasons: CSC and diabetes Intake Note: Follow up on diabetes. Patient completely stop all medications except the pain meds x 1 month ago Director Of Knowledge Management Required: No Allergies SEAFOOD Allergy (Severe, Uncoded 11/16/24 11:32) SWELLING Tobacco use date assessed: 11/16/24 Dental Screening Dental Screen Date: 11/16/24 Did you have a dental visit in the last 12 months?: Yes Did you have a dental problem in the last 6 months where you did not have access to dental care?: No Was dental information given to patient?: Patient has dentist HPI HPI Comments History of Present Illness Details This is a 49-year-old male with a past medical history of uncontrolled type 2 diabetes, hypertension, hyperlipidemia and lumbar and cervical radiculopathy presenting for follow up. He was last seen in June by me. The patient says he has not been taking any of his medications for a few weeks. He attributes this to going back and forth between [place] and [facility]. He does not have a car so he has to rely on others for transportation. He has also been under more stress because of the situation at his daughter's school. He says they are trying to charge her with distributing marijuana. Chronic back pain and neck pain-The patient underwent C5-6 ACDF on 05/18/[address] Ovalles. He reports improvement in pain, but he still has pain in his neck and forearms and numbness and tingling in the distal portions of his forearms into his hands. His paint line operator in [place] was Dr. Antonio Quiñones. He prescribed the patient's Gabapentin and Percocet. Patient was also evaluated in the spine clinic for lumbar radiculopathy, and he does have MRI showing surgical pathology which we will have to be addressed in the future. His current regimen for pain is gabapentin 800 mg 3 times a day and Percocet 10/325 mg 3 times a day. He uses a cane to ambulate. No falls recently. Tobacco use- He smokes less than 1/2 pack per day. PFT is pending, and he is reminded to have his chest x-ray completed. Type 2 diabetes-he saw endocrinology once, and then his insurance lapsed. Requests referral back to see endocrinology. He did not tolerate Trulicity, Ozempic and Mounjaro. Currently on metformin and Lantus. He is not checking his blood sugar. Patient denies blurry vision, dizziness, lethargy, polydipsia and polyuria. Hypertension-he has not been taking losartan, and his blood pressure is elevated today. He had a negative stress echo in 2019. No dizziness. Hyperlipidemia-His prior records note ?claudication,? and he says he had surgery for 1 of the blood vessels in his left leg to ?open it up. ? He has a history of left 3rd toe amputation. Takes ASA 81 mg daily. I prescribed atorvastatin, but he has not been taking it. He saw vascular surgery in July, but he lost his insurance so he did not follow up for testing or follow up appointment. His depression screening is positive. He endorses difficulty sleeping and anxiety. No SI or HI. His daughter is in therapy, and she attributes this to some of the absences of her father in her life. Patient requests referral to counseling. ROS: Constitutional: No unexplained weight loss, fever, chills or night sweats. Eyes: No vision changes Respiratory: No shortness of breath or sputum production. Denies wheezing. Cardiovascular: No chest pain, chest pressure or chest discomfort. No palpitations. Gastrointestinal: No anorexia, nausea, vomiting or diarrhea. No blood in stool. Genitourinary: No dysuria, hematuria, urinary frequency. Neurologic: No headache, dizziness, syncope Musculoskeletal: see HPI Psychiatric: No SI/HI. Physical exam: Constitutional: Alert, in no distress. Ambulates with cane. Head: Normocephalic. Eyes: Pupils are equal, round and reactive to light. Respiratory: Clear to auscultation. Cardiovascular: S1 S2 regular. No murmurs. Psychiatric: Normal mood and affect [facility] Medical History (Updated 11/16/24 @ 13:16 by LEON Barros) PVD (peripheral vascular disease) Anxiety and depression Chronic cough Microalbuminuric diabetic nephropathy Sinus congestion Opacified maxillary sinus Lumbosacral radiculopathy 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 Cervical stenosis of spinal canal Gallbladder polyp Cervical radiculopathy Tobacco use disorder Claudication in peripheral vascular disease Positive depression screening Lump on neck Lumbar radiculopathy Compression fracture of body of thoracic vertebra Pure hypercholesterolemia Essential hypertension Uncontrolled type 2 diabetes mellitus with hyperglycemia Back disorder High blood pressure High blood cholesterol Diabetes Surgical History (Updated 09/05/24 @ 10:13 by Rocio Chávez RN) Hx of cervical spine surgery (05/18/24) History of abdominal surgery Amputation of third toe, left, traumatic Family History Mother High blood pressure Diabetes Maternal Uncle Diabetes High blood pressure Social History Household Members: None Both parents involved: No Caregiver staying overnight: No Housing: Apartment Are you a primary home health care case manager to a significant other at home: No Do you presently have visiting nurse or other home services: No 75 years or older and lives alone: No Alcohol intake: current Alcohol intake frequency: holidays/special occasions only Comment: on occasion Patient Tobacco Use Status: Current everyday Tobacco user Tobacco use type: Cigarette Cigarettes Per Day: 5 e-Cigarette/Vaping Use: Never Used Substance Use Type: Marijuana service: No Current occupational status: disabled Cognitive needs: No Hearing needs: No Vision needs: Yes (Patient wears glasses) Questionnaire PHQ-9 Over the last 2 weeks, how often have you been bothered by any of the following problems? 1. Little interest or pleasure in doing things: several days 2. Feeling down, depressed, or hopeless: several days 3. Trouble falling or staying asleep, or sleeping too much: nearly every day 4. Feeling tired or having little energy: more than half the days 5. Poor appetite or overeating: not at all 6. Feeling bad about yourself - or that you are a failure or have let yourself or your family down: several days 7. Trouble concentrating on things, such as reading the newspaper or watching television: several days 8. Moving or speaking so slowly that other people could have noticed. Or the opposite - being so fidgety or restless that you have been moving around a lot more than usual: not at all 9. Thoughts that you would be better off or of hurting yourself in some way: not at all Total score: 9 Depression Screening Interpretation: Positive Depression Screening Done: Yes 76947 - PHQ-9 Billing: Yes Source: Developed by Drs. Samir Knight, Jose Cobb and colleagues, with an educational gin from [employer]. Thrive Questionnaire Date Thrive assessed: 11/16/24 I am a: Patient What is your living situation today?: I have a steady place to live Within the past 12 months, did the food you bought not last and you didn't have the money to get more?: Never true Within the past 12 months, did you worry whether your food would run out before you got money to buy more?: Never true Do you have trouble paying for medicines?: No Do you have trouble getting transportation to medical appointments?: Yes Do you have trouble paying your heating and electricity bill?: No Do you have trouble taking care of your child, family member or friend?: No Do you have trouble with day-to-day activities such as bathing, preparing meals, shopping, managing finances, etc.?: Yes Are you currently unemployed and looking for a job?: No Are you interested in more education?: No Please select the resources that you would like help with: Transportation, Care for elder or disabled and Daily support Currently or been in a relationship where the following occur: I choose not to answer THRIVE Score: 1 AUDIT C Alcohol Use Questionnaire (AUDIT-C) 1. How often do you have a drink containing alcohol?: Monthly or less 2. How many drinks containing alcohol do you have on a typical day when you are drinking?: 1 or 2 3. How often do you have six or more drinks on one occasion?: Less than monthly Total Score: 2 JOSE-7 AMB Questionnaire JOSE-7 Date JOSE - 7 assessed: 11/16/24 Feeling nervous, anxious, or on edge: 0 = Not at all Not being able to stop or control worryin = Not at all Worrying too much about different things: 3 = Nearly every day Trouble relaxin = Several days Being so restless that it is hard to sit still: 0 = Not at all Source: Developed by Jimena Gregory Kurt Kroenke and colleagues, with an educational gin from [employer]. JOSE-7 Assessment Billing JOSE-7 Assessment Tool: JOSE-7 Assessment 97661 Physical exam (Primary Care) Vital Signs: Last Vital Signs Temp 97.2 F 11/16/24 11:36 Pulse 92 11/16/24 11:36 Resp 13 11/16/24 11:36 BP 144/78 H 11/16/24 11:36 Pulse Ox 98 11/16/24 11:36 Oxygen Delivery Method Room Air 11/16/24 11:36 BMI result Body Mass Index 31.4 Tobacco/Smoking Status: Tobacco use Status Tobacco use date assessed 11/16/24 11/16/24 11:37 Patient Tobacco Use Status Current everyday Tobacco 11/16/24 11:33 Tobacco use type Cigarette 11/16/24 11:33 e-Cigarette/Vaping Use Never Used 11/16/24 11:33 PHQ-9: PHQ-9 Score PHQ-9: Total score 9 11/16/24 13:11 Depression Screening Interpretation: Positive Thrive Assessment: Date of Thrive Assessment Date Thrive assessed 11/16/24 11/16/24 11:33 Currently or been in a relationship where the following occur: I choose not to answer Coding Level of Care Code Est Pt Level 4 (94889) Complex EM visit Add On G2211 Diagnoses Uncontrolled type 2 diabetes mellitus with hyperglycemia E11.65 Chronic cough R05.3 Microalbuminuric diabetic nephropathy E11.21 Lumbosacral radiculopathy M54.17 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 G95.9; M54.12 Tobacco use disorder F17.200 Essential hypertension I10 Pure hypercholesterolemia E78.00 Anxiety and depression F41.9; F32.A PVD (peripheral vascular disease) I73.9 Additional Codes JOSE-7 Assessment Billing - JOSE-7 Assessment Tool: JOSE-7 Assessment 75774 ([id number]) PHQ-9 - 46847 - PHQ-9 Billing: Yes ([id number]) Assessment & Plan Assessment & Plan (1) Uncontrolled type 2 diabetes mellitus with hyperglycemia: Code(s): E11.65 - Type 2 diabetes mellitus with hyperglycemia Category: Medical (2) Chronic cough: Code(s): R05.3 - Chronic cough Category: Medical (3) Microalbuminuric diabetic nephropathy: Code(s): E11.21 - Type 2 diabetes mellitus with diabetic nephropathy Category: Medical (4) Lumbosacral radiculopathy: Code(s): M54.17 - Radiculopathy, lumbosacral region Category: Medical (5) 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: Code(s): G95.9 - Disease of spinal cord, unspecified; M54.12 - Radiculopathy, cervical region Category: Medical (6) Tobacco use disorder: Code(s): F17.200 - Nicotine dependence, unspecified, uncomplicated Category: Medical (7) Essential hypertension: Code(s): I10 - Essential (primary) hypertension Category: Medical (8) Pure hypercholesterolemia: Code(s): E78.00 - Pure hypercholesterolemia, unspecified Category: Medical (9) Anxiety and depression: Code(s): F41.9 - Anxiety disorder, unspecified; F32.A - Depression, unspecified Category: Medical (10) PVD (peripheral vascular disease): Code(s): I73.9 - Peripheral vascular disease, unspecified Category: Medical Plan Type 2 diabetes Patient has micro and macrovascular complications. Restart Arb for renal protection and microalbuminuria. Continue metformin and Lantus. Check labs. Referred back to endocrinology. Reviewed the importance of check blood sugars regularly to bring to appointments. Hypertension Restart losartan 50 mg daily. Recommended smoking cessation. Hyperlipidemia and peripheral vascular disease LDL goal less than 70. Restart atorvastatin. Recommended Mediterranean diet and ongoing efforts at weight loss. Continue baby aspirin 81 mg daily. Referred back to vascular surgery. Lumbar radiculopathy, cervical radiculopathy, chronic pain Continue gabapentin 800 mg 3 times daily. Continue Percocet 10/325 mg 3 times a day as needed for pain. We reviewed this is addictive, habit-forming medication. We reviewed side effects of the medication in detail. We discussed it is sedating and causes drowsiness. He should not drive or operate heavy machinery with the side effects. Followed by neuro spine clinic. Tobacco use disorder, chronic cough Patient has been referred to pulmonology. Strongly recommended smoking cessation. Have PFT and chest x-ray completed. Anxiety and depression, sleep dysfunction Trial of sertraline. Side effects, black box warning and administration reviewed. Refer to counseling. Follow up in 4-6 weeks. Orders: Orders Hemoglobin A1c Today E11.65 - Type 2 diabetes mellitus with hyperglycemia, E11.9 - Type 2 diabetes mellitus without complications Basic Metabolic Panel Today E11.65 - Type 2 diabetes mellitus with hyperglycemia Referrals Psychology Referral F32.A - Depression, unspecified, F41.9 - Anxiety disorder, unspecified Endocrinology Referral E11.65 - Type 2 diabetes mellitus with hyperglycemia Vascular Surgery Referral I73.9 - Peripheral vascular disease, unspecified Medications: New sertraline (Zoloft) Take 1/2 tab po nightly for 1 week then increase to 1 tab po nightly 50 mg PO DAILY 90 tabs 0RF Discontinued dulaglutide (Trulicity) Discontinued Reason: Doctor's Order 0.75 mg (0.5 mL) subcut QWEEK 2 mL 3RF
[2024-11-16 11:36] VITALS: BP 144/78; PULSE 92; RESP 13; TEMP 36.2; O2SAT 98; BMI 31.4
== END 2024-11-16 12:17 | disposition home or self-care (01) ==
LOC: HO.HMCFM 11:27
PROVIDERS: PCP Physician Assistant Medical; Visit Provider Physician Assistant Medical
DX: E11.65 Type 2 diabetes mellitus with hyperglycemia (principal); E11.21 Type 2 diabetes mellitus with diabetic nephropathy; G95.9 Disease of spinal cord, unspecified; I73.9 Peripheral vascular disease, unspecified; R05.3 Chronic cough; M54.17 Radiculopathy, lumbosacral region; M54.12 Radiculopathy, cervical region; F17.200 Nicotine dependence, unspecified, uncomplicated; I10 Essential (primary) hypertension; E78.00 Pure hypercholesterolemia, unspecified; F41.9 Anxiety disorder, unspecified; F32.A Depression, unspecified

== ENCOUNTER → 2024-11-16 11:27 | Outpatient (BNVA) | payer MEDICARE, MEDICAID, SELFPAY | PROVIDERS: PCP Physician Assistant Medical; Visit Provider Physician Assistant Medical | DX: E11.65 Type 2 diabetes mellitus with hyperglycemia (principal); E11.21 Type 2 diabetes mellitus with diabetic nephropathy; E11.51 Type 2 diabetes mellitus with diabetic peripheral angiopathy without gangrene; R05.3 Chronic cough; I10 Essential (primary) hypertension; M54.12 Radiculopathy, cervical region; M54.16 Radiculopathy, lumbar region; G95.9 Disease of spinal cord, unspecified; M54.17 Radiculopathy, lumbosacral region; F17.210 Nicotine dependence, cigarettes, uncomplicated; E78.00 Pure hypercholesterolemia, unspecified; F41.9 Anxiety disorder, unspecified; F32.A Depression, unspecified | CPT/HCPCS: 96127; 99212 ==

== ENCOUNTER 2024-11-20 14:56 | Outpatient (REF) | payer MEDICARE, MEDICAID, SELFPAY ==
[2024-11-20 16:53] LABS: Estimated Average Glucose 255 mg/dL; Hemoglobin A1c % 10.5 % (<6.0)
[2024-11-20 17:01] LABS: Alanine Aminotransferase < 6 U/L (0-40); Anion Gap 11 (12-20); Aspartate Amino Transferase 13 U/L (5-37); Blood Urea Nitrogen 12 mg/dL (9-16); Carbon Dioxide 23 mmol/L (22-29); Chloride 108 mmol/L (96-108); Estimated Glomerular Filt Rate > 60; Glucose Random 294 mg/dL (60-115); Sodium 138 mmol/L (135-145)
== END 2024-11-20 14:57 | disposition home or self-care (01) ==
LOC: HO.HHCL 14:56
PROVIDERS: Visit Provider Physician Assistant Medical
DX: E11.65 Type 2 diabetes mellitus with hyperglycemia (principal); E78.00 Pure hypercholesterolemia, unspecified
CPT/HCPCS: 36415; 80048; 83036; 84450; 84460

== ENCOUNTER 2024-12-05 13:02 | Outpatient (REF) | payer MEDICARE, MEDICAID, SELFPAY ==
--- NOTE | ~2024-12-05 | US_ITS ---
EXAMINATION: US LOWER EXTREMITY VENOUS (REFLUX EXAM), BILATERAL CLINICAL INFORMATION: Varices. COMPARISON: None. TECHNIQUE: Color flow triplex imaging and compression Doppler was performed to evaluate both the deep and the superficial systems bilaterally. To evaluate the superficial system, the examination was performed in the upright position. Color-flow Doppler ultrasound and compression ultrasound were utilized. In addition, maneuvers were utilized to demonstrate reflux. FINDINGS: 1. DEEP VENOUS ULTRASOUND OF THE RIGHT LOWER EXTREMITY: Common Femoral Vein: Compressible, normal respiratory variation and augmented flow. Femoral Vein: Compressible, normal color flow and augmentation. Popliteal Vein: Compressible, normal augmentation. Deep Reflux: There is no evidence of reflux in the deep system in either the common femoral vein, superficial femoral or the popliteal vein. There is no evidence of a Urbina's cyst. 2. SUPERFICIAL ULTRASOUND WITH DOPPLER OF RIGHT LOWER EXTREMITY: GREAT SAPHENOUS VEIN: Saphenofemoral Junction: 0.9 cm; Reflux: 0 ms Proximal Thigh: 0.4 cm; Reflux: 0 ms Mid Thigh: 0.4 cm; Reflux: 0 ms Distal Thigh: 0.3 cm; Reflux: 0 ms At Knee: 0.4 cm; Reflux: 0 ms Proximal Calf: 0.3 cm; Reflux: 0 ms Mid Calf: 0.3 cm; Reflux: 0 ms Distal Calf: 0.3 cm; Reflux: 0 ms DUPLICATED MEDIAL GREAT SAPHENOUS VEIN: Diameter: None imaged Reflux: NA DUPLICATED LATERAL GREAT SAPHENOUS VEIN: Diameter: 0.4 cm. Reflux: NA SMALL SAPHENOUS VEIN: Saphenopopliteal Junction: 0.1 cm; Reflux: 0 ms Proximal: 0.2 cm; Reflux: 0 ms Distal: 0.2 cm; Reflux: 0 ms VEIN OF GIACOMINI: Size: 0.3 cm. Reflux: NA PERFORATORS: Location: Proximal and mid calf. Size: 0.1-0.3 cm. Reflux: NA VARICOSITIES: Location: Proximal thigh. Size: 0.4 cm. Reflux: NA 3. DEEP VENOUS ULTRASOUND OF THE LEFT LOWER EXTREMITY: Common Femoral Vein: Compressible, normal respiratory variation and augmented flow. Femoral Vein: Compressible, normal color flow and augmentation. Popliteal Vein: Compressible, normal augmentation. Deep Reflux: There is no evidence of reflux in the deep system in either the common femoral vein, superficial femoral or the popliteal vein. There is no evidence of a Urbina's cyst. 4. SUPERFICIAL ULTRASOUND WITH DOPPLER OF LEFT LOWER EXTREMITY: GREAT SAPHENOUS VEIN: Saphenofemoral Junction: 0.8 cm; Reflux: 0 ms Proximal Thigh: 0.6 cm; Reflux: 0 ms Mid Thigh: 0.4 cm; Reflux: 0 ms Distal Thigh: 0.4 cm; Reflux: 0 ms At Knee: 0.4 cm; Reflux: 0 ms Proximal Calf: 0.3 cm; Reflux: 0 ms Mid Calf: 0.3 cm; Reflux: 816 ms Distal Calf: 0.3 cm; Reflux: 0 ms DUPLICATED MEDIAL GREAT SAPHENOUS VEIN: Diameter: None imaged Reflux: NA DUPLICATED LATERAL GREAT SAPHENOUS VEIN: Diameter: 0.3 cm. Reflux: NA SMALL SAPHENOUS VEIN: Saphenopopliteal Junction: 0.2 cm; Reflux: 0 ms Proximal: 0.2 cm; Reflux: 0 ms Distal: 0.2 cm; Reflux: 0 ms VEIN OF GIACOMINI: Size: NA Reflux: NA PERFORATORS: Location: Mid thigh and proximal to mid calf. Size: 0.1-0.2 cm. Reflux: NA VARICOSITIES: Location: Mid thigh to the knee. Size: 0.3 cm. Reflux: NA US/US venous duplex LE BI IMPRESSION: Right: No venous insufficiency. Varices in the proximal thigh without reflux. Left: Venous insufficiency, great saphenous vein at the mid calf. Varices from the mid thigh to the knee without reflux. Electronically signed by: Freddy Denny MD 12/06/2024 07:21 AM EDT
== END 2024-12-05 13:03 | disposition home or self-care (01) ==
LOC: HO.US 13:02
PROVIDERS: PCP Physician Assistant Medical; Visit Provider Physician Assistant Surgical
DX: I83.11 Varicose veins of right lower extremity with inflammation (principal); I83.12 Varicose veins of left lower extremity with inflammation
CPT/HCPCS: 93970

== ENCOUNTER → 2024-12-05 13:04 | Outpatient (BNV) | payer MEDICARE, MEDICAID, SELFPAY | PROVIDERS: PCP Physician Assistant Medical; Visit Provider Radiology Diagnostic Radiology | DX: I83.11 Varicose veins of right lower extremity with inflammation (principal); I83.12 Varicose veins of left lower extremity with inflammation | CPT/HCPCS: 93970 ==

== ENCOUNTER 2025-04-16 09:43 | Outpatient (REF) | payer MEDICARE, MEDICAID, SELFPAY ==
[2025-04-16 14:31] LABS: Total Hemoglobin (HGBA1C) 3705.5197 umol/L
[2025-04-16 14:42] LABS: Alanine Aminotransferase < 6 U/L (0-40); Albumin Level 3.7 g/dL (3.5-5.0); Alkaline Phosphatase 77 U/L (39-117); Anion Gap 11 (12-20); Aspartate Amino Transferase 18 U/L (5-37); Blood Urea Nitrogen 14 mg/dL (9-16); Calcium 8.9 mg/dL (8.4-10.2); Carbon Dioxide 23 mmol/L (22-29); Chloride 105 mmol/L (96-108); Cholesterol 203 mg/dL (<200); Estimated Glomerular Filt Rate > 60; HDL Cholesterol 48 mg/dL (>40); Potassium 4.3 mmol/L (3.3-5.1); Sodium 135 mmol/L (135-145); Total Protein 6.7 g/dL (6.5-8.0); Triglycerides 91 mg/dL (<150)
[2025-04-16 14:57] LABS: Vitamin B12 455 pg/mL (200-900)
[2025-04-16 15:04] LABS: Microalbum/Creatinine Ratio Ur 954.6 ug/mg cr (<30)
== END 2025-04-16 09:44 | disposition home or self-care (01) ==
LOC: HO.WFDLDS 09:43
PROVIDERS: PCP Physician Assistant Medical; Visit Provider Physician Assistant Medical
DX: I10 Essential (primary) hypertension (principal); E11.21 Type 2 diabetes mellitus with diabetic nephropathy; E11.65 Type 2 diabetes mellitus with hyperglycemia; Z91.89 Other specified personal risk factors, not elsewhere classified; E78.5 Hyperlipidemia, unspecified; E78.00 Pure hypercholesterolemia, unspecified; R05.3 Chronic cough; M54.17 Radiculopathy, lumbosacral region; G95.9 Disease of spinal cord, unspecified; M54.12 Radiculopathy, cervical region; F41.9 Anxiety disorder, unspecified; F32.A Depression, unspecified; I73.9 Peripheral vascular disease, unspecified; R22.1 Localized swelling, mass and lump, neck; F17.210 Nicotine dependence, cigarettes, uncomplicated; Z79.82 Long term (current) use of aspirin; Z79.4 Long term (current) use of insulin; Z79.84 Long term (current) use of oral hypoglycemic drugs; Z79.891 Long term (current) use of opiate analgesic; Z79.899 Other long term (current) drug therapy
CPT/HCPCS: 36415; 80053; 80061; 82043; 82570; 82607; 83036; 99212

== ENCOUNTER 2025-04-16 09:43 | Outpatient (AMB) | payer MEDICARE, MEDICAID, SELFPAY ==
--- NOTE | 2025-04-16 09:52 | MHC.PC.OV ---
Vital Signs 04/16/25 09:59 Height 6 ft Weight 232 lb BMI 31.5 BP 128/82 Blood Pressure Location Rt brachial Position Sitting Respiration 13 Pulse 79 Pulse Source Pulse Oximeter Temp 97.5 F Temp Source Temporal Artery Scan Pulse Oximetry (%) 98 Oxygen Delivery Method Room Air Intake Visit Reasons: med review Intake Note: Kevan presents in the office today for a medication review. Allergies SEAFOOD Allergy (Severe, Uncoded 04/16/25 09:54) SWELLING Medication List - Last Reconciled 04/17/25 by LEON Barros aspirin (Adult Aspirin Regimen) 81 mg PO DAILY atorvastatin 20 mg PO BEDTIME blood sugar diagnostic (OneTouch Verio test strips) Test blood glucose up to three times daily blood sugar diagnostic (FreeStyle Lite Strips) As directed to check glucose up to 3 times daily blood-glucose meter As directed blood-glucose meter (FreeStyle Lite Meter kit) 3 times a day blood-glucose sensor (Dexcom G7 Sensor device) Use daily As directed to monitor glucose. change q 10 days blood-glucose sensor (FreeStyle Art 3 Plus Sensor device) Apply 1 new sensor every 15 days as directed to monitor blood glucose continuously. blood-glucose,rv parts and service director,cont (Dexcom G7 Repairer Controller Tester) use daily As directed to monitor blood glucose blood-glucose,rv parts and service director,cont (FreeStyle Art 3 [place]) Use daily to monitor blood glucose levels continuously. cane As directed epinephrine (EpiPen) 0.3 mg (0.3 mL) IM ONCE PRN gabapentin 800 mg PO TID 30 days insulin glargine (Lantus Solostar U-100 Insulin) 10 units (0.1 mL) subcut QPM lancets (OneTouch Delica Plus Lancet) test blood glucose up to three times daily lancets (FreeStyle Lancets) Use to monitor blood glucose 3 times daily. losartan 50 mg PO DAILY 90 days metformin ER 1,000 mg (2 x 500 mg) PO BID 90 days oxycodone-acetaminophen 10-325 mg 1 tab PO TID PRN 28 days pen needle, diabetic (BD Kary 2nd Gen Pen Needle) Use once daily As directed pen needle, diabetic As directed to administer insulin once daily sertraline 50 mg PO DAILY Tobacco use date assessed: 04/16/25 Dental Screening Dental Screen Date: 04/16/25 Did you have a dental visit in the last 12 months?: No Did you have a dental problem in the last 6 months where you did not have access to dental care?: No Was dental information given to patient?: Patient declined HPI HPI Comments History of Present Illness Details This is a 49-year-old male with a past medical history of uncontrolled type 2 diabetes, hypertension, hyperlipidemia and lumbar and cervical radiculopathy presenting for follow up. Chronic back pain and neck pain-The patient underwent C5-6 ACDF on 05/18/[address] Ovalles. He reports improvement in pain, but he still has pain in his neck and forearms and numbness and tingling in the distal portions of his forearms into his hands. His baker paint in [place] was Dr. Antonio Quiñones. He prescribed the patient's Gabapentin and Percocet. Patient was also evaluated in the spine clinic for lumbar radiculopathy, and he does have MRI showing surgical pathology to be addressed at a future date. He would like a referral back to the neuro spine clinic because he was having increased lower back pain and radicular symptoms into both of his legs. It is worse in the left leg than the right. He also endorses intermittent weakness and giving out of the left leg associated with back pain. Denies numbness or tingling in the groin or loss of bowel or bladder control. His current regimen for pain is gabapentin 800 mg 3 times a day and Percocet 10/325 mg 3 times a day. He has used a cane, and he needs a new prescription. Tobacco use- He smokes 1/2 pack per day. PFT and chest x-ray and pulmonology referral were ordered but not completed. Patient had an MRI of the orbits and face and neck without and with contrast on 06/13/2024 which demonstrated a lipoma on the right lateral neck and opacification of the right maxillary sinus in findings concerning for potential silent sinus syndrome. The patient was referred to ENT, but he did not schedule that appointment. Type 2 diabetes-he saw endocrinology once, and then his insurance lapsed. He did not tolerate Trulicity, Ozempic and Mounjaro. Currently on metformin. He was previously on Lantus, but he is not taking it currently. He is not checking his blood sugars. Hypertension-he is taking losartan. His blood pressure is normal today. He had a negative stress echo in 2019. No dizziness. Hyperlipidemia-His prior records note ?claudication,? and he says he had surgery for 1 of the blood vessels in his left leg to ?open it up. ? He has a history of left 3rd toe amputation. Takes ASA 81 mg daily. I prescribed atorvastatin, but he does not take it consistently. Patient says he missed his appointment with vascular surgery for follow up and needs a new referral. He had venous duplex studies on 12/05/2024 which demonstrated varices in the proximal right thigh without reflux and left venous insufficiency. Patient says he is taking sertraline for depression and anxiety. He requests a letter so that he can be relocated closer to [facility] due to transportation issues. He uses transportation services to attend appointments. It is difficult to coordinate his care and he attributes that to the reason why he has missed appointments with specialists. ROS: Constitutional: No unexplained weight loss, fever, chills or night sweats. Eyes: No vision changes Respiratory: No shortness of breath or sputum production. Denies wheezing. Cardiovascular: No chest pain, chest pressure or chest discomfort. No palpitations. Gastrointestinal: No anorexia, nausea, vomiting or diarrhea. No blood in stool. Genitourinary: No dysuria, hematuria, urinary frequency. Neurologic: No headache, dizziness, syncope Musculoskeletal: see HPI Psychiatric: No SI/HI. Physical exam: Constitutional: Alert, in no distress. Ambulates with cane. Head: Normocephalic. Eyes: Pupils are equal, round and reactive to light. Neck: Palpable, nontender soft tissue mass in the left lateral neck. Respiratory: Clear to auscultation. Cardiovascular: S1 S2 regular. No murmurs. Psychiatric: Normal mood and affect Back: Pain with extension and lateral bending. Midline spinal tenderness in the lumbosacral spine and paraspinal muscle tenderness bilaterally. Negative straight leg raises bilaterally. Symmetric patellar reflexes. Lower extremity strength 4/5 bilaterally. No footdrop. Extremities: Warm and well perfused, intact dorsalis pedis pulses. Left 3rd toe amputated. No open wounds of the feet. Bilateral onychomycosis noted. [facility] Medical History (Updated 04/17/25 @ 08:35 by LEON Barros) Mass of right side of neck PVD (peripheral vascular disease) Anxiety and depression Chronic cough Microalbuminuric diabetic nephropathy Sinus congestion Opacified maxillary sinus Lumbosacral radiculopathy 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 Cervical stenosis of spinal canal Gallbladder polyp Cervical radiculopathy Tobacco use disorder Claudication in peripheral vascular disease Positive depression screening Lump on neck Lumbar radiculopathy Compression fracture of body of thoracic vertebra Pure hypercholesterolemia Essential hypertension Uncontrolled type 2 diabetes mellitus with hyperglycemia Back disorder High blood pressure High blood cholesterol Diabetes Surgical History (Updated 09/05/24 @ 10:13 by Rocio Chávez RN) Hx of cervical spine surgery (05/18/24) History of abdominal surgery Amputation of third toe, left, traumatic Family History Mother High blood pressure Diabetes Substance abuse Alcoholism Maternal Uncle Diabetes High blood pressure Father Substance abuse Alcoholism Brother Substance abuse Social History (Updated 04/16/25 @ 09:59 by Zuleika Edmondson MA) Household Members: None Both parents involved: No Caregiver staying overnight: No Housing: Apartment Are you a primary wound care technician to a significant other at home: No Do you presently have visiting nurse or other home services: No 75 years or older and lives alone: No Alcohol intake: current Alcohol intake frequency: holidays/special occasions only Comment: on occasion Patient Tobacco Use Status: Current everyday Tobacco user Tobacco use type: Cigarette Cigarettes Per Day: 5 e-Cigarette/Vaping Use: Never Used Second Hand Smoke Exposure: Yes Substance Use Type: Marijuana service: No Current occupational status: disabled Cognitive needs: No Hearing needs: No Vision needs: Yes (Patient wears glasses) Questionnaire Thrive Questionnaire Date Thrive assessed: 11/16/24 I am a: Patient What is your living situation today?: I have a steady place to live Within the past 12 months, did the food you bought not last and you didn't have the money to get more?: Never true Within the past 12 months, did you worry whether your food would run out before you got money to buy more?: Never true Do you have trouble paying for medicines?: No Do you have trouble getting transportation to medical appointments?: Yes Do you have trouble paying your heating and electricity bill?: No Do you have trouble taking care of your child, family member or friend?: No Do you have trouble with day-to-day activities such as bathing, preparing meals, shopping, managing finances, etc.?: Yes Are you currently unemployed and looking for a job?: No Are you interested in more education?: No Currently or been in a relationship where the following occur: I choose not to answer THRIVE Score: 1 JOSE-7 AMB Questionnaire JOSE-7 Date JOSE - 7 assessed: 11/16/24 Becoming easily annoyed or irritable: 1 = Several days Feeling afraid as if something awful might happen: 0 = Not at all Source: Developed by Drs. Samir Knight, Jimena Aguila, Jose Blancas and colleagues, with an educational gin from [email or web address]. Physical exam (Primary Care) Vital Signs: Last Vital Signs Temp 97.5 F 04/16/25 09:59 Pulse 79 04/16/25 09:59 Resp 13 04/16/25 09:59 BP 128/82 04/16/25 09:59 Pulse Ox 98 04/16/25 09:59 Oxygen Delivery Method Room Air 04/16/25 09:59 BMI result Body Mass Index 31.5 Tobacco/Smoking Status: Tobacco use Status Tobacco use date assessed 04/16/25 04/16/25 10:02 Patient Tobacco Use Status Current everyday Tobacco 04/16/25 09:59 Tobacco use type Cigarette 04/16/25 09:59 e-Cigarette/Vaping Use Never Used 04/16/25 09:59 Thrive Assessment: Date of Thrive Assessment Date Thrive assessed 11/16/24 04/16/25 09:57 Currently or been in a relationship where the following occur: I choose not to answer Coding Level of Care Code Est Pt Level 5 (79376) Complex EM visit Add On G2211 Diagnoses Chronic cough R05.3 Microalbuminuric diabetic nephropathy E11.21 Lumbosacral radiculopathy M54.17 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 G95.9; M54.12 Tobacco use disorder F17.200 Essential hypertension I10 Pure hypercholesterolemia E78.00 Anxiety and depression F41.9; F32.A PVD (peripheral vascular disease) I73.9 Mass of right side of neck R22.1 Time Spent (min) 55 Comment orders/referrals, documentation, direct care Assessment & Plan Assessment & Plan (1) Chronic cough: Code(s): R05.3 - Chronic cough Category: Medical (2) Microalbuminuric diabetic nephropathy: Code(s): E11.21 - Type 2 diabetes mellitus with diabetic nephropathy Category: Medical (3) Lumbosacral radiculopathy: Code(s): M54.17 - Radiculopathy, lumbosacral region Category: Medical (4) 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: Code(s): G95.9 - Disease of spinal cord, unspecified; M54.12 - Radiculopathy, cervical region Category: Medical (5) Tobacco use disorder: Code(s): F17.200 - Nicotine dependence, unspecified, uncomplicated Category: Medical (6) Essential hypertension: Code(s): I10 - Essential (primary) hypertension Category: Medical (7) Pure hypercholesterolemia: Code(s): E78.00 - Pure hypercholesterolemia, unspecified Category: Medical (8) Anxiety and depression: Code(s): F41.9 - Anxiety disorder, unspecified; F32.A - Depression, unspecified Category: Medical (9) PVD (peripheral vascular disease): Code(s): I73.9 - Peripheral vascular disease, unspecified Category: Medical (10) Mass of right side of neck: Code(s): R22.1 - Localized swelling, mass and lump, neck Category: Medical Plan Type 2 diabetes Patient has micro and macrovascular complications. Continue losartan renal protection and microalbuminuria. Continue metformin and restart Lantus 10 units nightly. Prescribed glucometer and CGM. Referred anew to endocrinology. Check labs. Reviewed the importance of check blood sugars regularly to bring to appointments. Hypertension Restart losartan 50 mg daily. Recommended smoking cessation. Hyperlipidemia and peripheral vascular disease LDL goal less than 70. Encouraged compliance with the atorvastatin. Recommended Mediterranean diet and ongoing efforts at weight loss. Continue baby aspirin 81 mg daily. Referred back to vascular surgery. Lumbar radiculopathy, cervical radiculopathy, chronic pain Continue gabapentin 800 mg 3 times daily. Continue Percocet 10/325 mg 3 times a day as needed for pain. We reviewed this is addictive, habit-forming medication. We reviewed side effects of the medication in detail. We discussed it is sedating and causes drowsiness. He should not drive or operate heavy machinery with the side effects. Referred back to neuro spine clinic. Tobacco use disorder, chronic cough Referred to pulmonology again. Strongly recommended smoking cessation. Have PFT and chest x-ray completed. Reordered. Anxiety and depression, sleep dysfunction Continue sertraline. Right neck mass, abnormal MRI of sinuses Referred again to ENT. Follow up in 3 months. Orders: Orders Lipid Panel 04/16/25 E78.5 - Hyperlipidemia, unspecified, I10 - Essential (primary) hypertension XR chest 2V Today F17.200 - Nicotine dependence, unspecified, uncomplicated, R05.3 - Chronic cough Microalbumin, Random (w Creat) 04/16/25 E11.9 - Type 2 diabetes mellitus without complications, I10 - Essential (primary) hypertension Comprehensive Met. Panel 04/16/25 I10 - Essential (primary) hypertension Hemoglobin A1c 04/16/25 I10 - Essential (primary) hypertension, R73.9 - Hyperglycemia, unspecified Vitamin B12 04/16/25 I10 - Essential (primary) hypertension, Z91.89 - Other specified personal risk factors, not elsewhere classified PFT pulmonary function test Today F17.200 - Nicotine dependence, unspecified, uncomplicated, R05.3 - Chronic cough Referrals Endocrinology Referral E11.65 - Type 2 diabetes mellitus with hyperglycemia Ear/Nose/Throat Referral R09.81 - Nasal congestion, R22.1 - Localized swelling, mass and lump, neck, R93.0 - Abnormal findings on diagnostic imaging of skull and head, not elsewhere classified Neuro Spine Referral M54.17 - Radiculopathy, lumbosacral region Pulmonology Referral F17.200 - Nicotine dependence, unspecified, uncomplicated, R05.3 - Chronic cough Vascular Surgery Referral I73.9 - Peripheral vascular disease, unspecified Medications: New cane As directed 1 ea 0RF M54.16 - Radiculopathy, lumbar region
[2025-04-16 09:59] VITALS: BP 128/82; PULSE 79; RESP 13; TEMP 36.4; O2SAT 98; BMI 31.5
== END 2025-04-16 10:37 | disposition home or self-care (01) ==
LOC: HO.HMCFM 09:44
PROVIDERS: PCP Physician Assistant Medical; Visit Provider Physician Assistant Medical
DX: R05.3 Chronic cough (principal); E11.21 Type 2 diabetes mellitus with diabetic nephropathy; G95.9 Disease of spinal cord, unspecified; M54.17 Radiculopathy, lumbosacral region; M54.12 Radiculopathy, cervical region; F17.200 Nicotine dependence, unspecified, uncomplicated; I10 Essential (primary) hypertension; E78.00 Pure hypercholesterolemia, unspecified; F41.9 Anxiety disorder, unspecified; F32.A Depression, unspecified; I73.9 Peripheral vascular disease, unspecified; R22.1 Localized swelling, mass and lump, neck

== ENCOUNTER 2025-05-04 08:55 | Outpatient (REF) | payer MEDICARE, MEDICAID, SELFPAY ==
--- NOTE | ~2025-05-04 | US_ITS ---
EXAMINATION: US ABDOMEN LIMITED HISTORY: K82.4 - Cholesterolosis of gallbladder TECHNIQUE: Real-time grayscale ultrasound imaging of the right upper quadrant was performed and images were reviewed. COMPARISON: There are no prior studies available for comparison. FINDINGS: Liver: The right lobe of the liver measures 15.4 cm in size. The left lobe of the liver measures 10.0 cm in size. The liver demonstrates increased echotexture, consistent with steatosis. No focal mass or intrahepatic biliary ductal dilatation is identified. There is normal hepatopedal flow in the portal vein. Gallbladder and biliary tree: There are multiple polyps in the gallbladder as well as a ring down artifact from the gallbladder wall, consistent with adenomyomatosis. The gallbladder is otherwise unremarkable, without evidence of calculi, wall thickening, or pericholecystic fluid. There is no sonographic Headley sign. The common bile duct is normal in caliber measuring 4 mm. Right Kidney: The right kidney measures 12.0 cm in length. The right kidney is unremarkable, without evidence of masses, hydronephrosis, or calculi. Pancreas: The pancreatic head, neck, and body are unremarkable. The pancreatic tail is obscured by bowel gas. Abdominal aorta and inferior vena cava: The visualized portions of the abdominal aorta and inferior vena cava are normal in caliber. There is no free fluid in the right upper quadrant. US/US abdomen limited IMPRESSION: Hepatic steatosis. Gallbladder polyps and adenomyomatosis. Electronically signed by: Samir Gordon MD 05/04/2025 10:10 AM EDT
== END 2025-05-04 08:56 | disposition home or self-care (01) ==
LOC: HO.US 08:55
PROVIDERS: PCP Physician Assistant Medical; Visit Provider Physician Assistant Medical
DX: K82.4 Cholesterolosis of gallbladder (principal)
CPT/HCPCS: 76705

== ENCOUNTER → 2025-05-04 08:56 | Outpatient (BNV) | payer MEDICARE, MEDICAID, SELFPAY | PROVIDERS: PCP Physician Assistant Medical; Visit Provider Radiology Diagnostic Radiology | DX: K76.0 Fatty (change of) liver, not elsewhere classified (principal) | CPT/HCPCS: 76705 ==

== ENCOUNTER 2025-05-22 14:49 | Outpatient (AMB) | payer MEDICARE, MEDICAID, SELFPAY ==
--- NOTE | 2025-05-22 14:50 | A.OFFVIS_ITS ---
Vital Signs 05/22/25 14:52 Height 6 ft Weight 232 lb BMI 31.5 Intake Visit Reasons: follow up [facility] 12/05/24 Intake Note: follow up [facility] 12/05/24, Pt states Left LE weakness, using cane to ambulate. Has hx of vascular procedures 4 yrs ago on Left LE. Pt states he stumbles due to LE weakness. 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 The patient has a history of diabetes mellitus and continues to smoke, which are significant risk factors for vascular complications. He underwent a surgical procedure in [place] around early 2019, which resulted in a partial amputation of the left third toe due to complications. The patient reports using a cane for ambulation due to balance issues and back pain. He experiences leg weakness and a sensation of giving out while walking, which contributes to his risk of falls. [facility] Medical History Hepatic steatosis Mass of right side of neck PVD (peripheral vascular disease) Anxiety and depression Chronic cough Microalbuminuric diabetic nephropathy Sinus congestion Opacified maxillary sinus Lumbosacral radiculopathy 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 Cervical stenosis of spinal canal Gallbladder polyp Cervical radiculopathy Tobacco use disorder Claudication in peripheral vascular disease Positive depression screening Lump on neck Lumbar radiculopathy Compression fracture of body of thoracic vertebra Pure hypercholesterolemia Essential hypertension Uncontrolled type 2 diabetes mellitus with hyperglycemia Back disorder High blood pressure High blood cholesterol Diabetes Surgical History Hx of cervical spine surgery (05/18/24) History of abdominal surgery Amputation of third toe, left, traumatic Family History Mother High blood pressure Diabetes Substance abuse Alcoholism Maternal Uncle Diabetes High blood pressure Father Substance abuse Alcoholism Brother Substance abuse Social History Household Members: None Both parents involved: No Caregiver staying overnight: No Housing: Apartment Are you a primary adult daycare coordinator to a significant other at home: No Do you presently have visiting nurse or other home services: No 75 years or older and lives alone: No Alcohol intake: current Alcohol intake frequency: holidays/special occasions only Comment: on occasion Patient Tobacco Use Status: Current everyday Tobacco user Tobacco use type: Cigarette Cigarettes Per Day: 5 e-Cigarette/Vaping Use: Never Used Second Hand Smoke Exposure: Yes Substance Use Type: Marijuana service: No Current occupational status: disabled Cognitive needs: No Hearing needs: No Vision needs: Yes (Patient wears glasses) Physical Exam Vital Signs: BMI result Body Mass Index 31.5 Cardio Other: Right side palpable dorsalis pedis pulse left side DP signal only Skin Other: Left 3rd toe partial amputation Results Reviewed Results Reviewed: Brief summary of venous insufficiency testing is as follows: right great saphenous vein: negative right small saphenous vein: negative right accessory vein: none present left great saphenous vein: negative left small saphenous vein: negative left accessory vein: none present Please note there is no evidence of any venous aneurysms or significant tortuosity Assessment & Plan Assessment & Plan (1) PAD (peripheral artery disease): Code(s): I73.9 - Peripheral vascular disease, unspecified Category: Medical Plan: In short patient may have an element of peripheral vascular disease. He is a smoker and a diabetic. He does have a previous history of toe amputation. It has been sometime since he has had a surveillance arterial ultrasound. I have taken the liberty of ordering noninvasive arterial testing. He will follow up with us after testing. Thank you for allowing us to assist in his care. (2) Varicose veins of both lower extremities with inflammation: Code(s): I83.11 - Varicose veins of right lower extremity with inflammation; I83.12 - Varicose veins of left lower extremity with inflammation Category: Medical Plan: Patient is negative for any significant venous insufficiency. We will work him up for arterial disease. Orders: Orders US arterial duplex LE BI Today I73.9 - Peripheral vascular disease, unspecified Coding Level of Care Code Est Pt Level 4 (19592) Diagnoses PAD (peripheral artery disease) I73.9 Varicose veins of both lower extremities with inflammation I83.11; I83.12
[2025-05-22 14:52] VITALS: BMI 31.5
== END 2025-05-22 15:04 | disposition home or self-care (01) ==
LOC: HO.HVS 14:50
PROVIDERS: PCP Physician Assistant Medical; Visit Provider Surgery Vascular Surgery
DX: I73.9 Peripheral vascular disease, unspecified (principal); I83.11 Varicose veins of right lower extremity with inflammation; I83.12 Varicose veins of left lower extremity with inflammation
CPT/HCPCS: 99214

== ENCOUNTER → 2025-05-22 14:49 | Outpatient (BNVA) | payer MEDICARE, MEDICAID, SELFPAY | PROVIDERS: PCP Physician Assistant Medical; Visit Provider Surgery Vascular Surgery | DX: I73.9 Peripheral vascular disease, unspecified (principal); I83.11 Varicose veins of right lower extremity with inflammation; I83.12 Varicose veins of left lower extremity with inflammation; Z89.429 Acquired absence of other toe(s), unspecified side; E11.9 Type 2 diabetes mellitus without complications; F17.210 Nicotine dependence, cigarettes, uncomplicated | CPT/HCPCS: 99212 ==

== ENCOUNTER 2025-06-18 10:00 | Outpatient (AMB) | payer MEDICARE, MEDICAID, SELFPAY ==
--- NOTE | 2025-06-18 10:16 | MHC.OFFVIS ---
Vital Signs 06/18/25 10:28 Height 6 ft Weight 237 lb BMI 32.1 BP 140/82 H Blood Pressure Location Lt brachial Position Sitting Intake Visit Reasons: Cholesterolosis of gallbladder Intake Note: Patient is seen in office for evaluation of cholesteroiosis of the gallbladder. Pt c/o: has pain in the left side of the abdomen, was send for imaging and was told about the gallbladder, admits to nausea-worse with greasy food, some loose stool for the past few days us:05/04/25 Referral Manager Required: No Accompanied by: Self / Same As Patient Allergies SEAFOOD Allergy (Severe, Uncoded 06/18/25 10:26) SWELLING Medication List - Last Reconciled 06/18/25 by Jeff Blanc MD aspirin (Adult Aspirin Regimen) 81 mg PO DAILY atorvastatin 20 mg PO BEDTIME blood sugar diagnostic (OneTouch Verio test strips) Test blood glucose up to three times daily blood sugar diagnostic (FreeStyle Lite Strips) As directed to check glucose up to 3 times daily blood-glucose meter As directed blood-glucose meter (FreeStyle Lite Meter kit) 3 times a day blood-glucose sensor (Dexcom G7 Sensor device) Use daily As directed to monitor glucose. change q 10 days blood-glucose sensor (FreeStyle Art 3 Plus Sensor device) Apply 1 new sensor every 15 days as directed to monitor blood glucose continuously. blood-glucose,reflector driller and deburrer,cont (Dexcom G7 Didactic Instructor) use daily As directed to monitor blood glucose blood-glucose,reflector driller and deburrer,cont (FreeStyle Art 3 [place]) Use daily to monitor blood glucose levels continuously. cane As directed epinephrine (EpiPen) 0.3 mg (0.3 mL) IM ONCE PRN gabapentin 800 mg PO TID 30 days insulin glargine (Lantus Solostar U-100 Insulin) 10 units (0.1 mL) subcut QPM lancets (SiteMinderuch Delica Plus Lancet) test blood glucose up to three times daily lancets (FreeStyle Lancets) Use to monitor blood glucose 3 times daily. losartan 50 mg PO DAILY 90 days metformin ER 1,000 mg (2 x 500 mg) PO BID 90 days oxycodone-acetaminophen 10-325 mg 1 tab PO TID PRN 28 days pen needle, diabetic (BD Kary 2nd Gen Pen Needle) Use once daily As directed pen needle, diabetic As directed to administer insulin once daily sertraline 50 mg PO DAILY HPI Comments Details: 41-year-old male patient presenting for evaluation of multiple gallbladder polyps noted on a recent ultrasound of the abdomen. The patient reports initially having abdominal pain in the left upper quadrant for which an ultrasound was performed. He was incidentally noted to have multiple gallbladder polyps the largest measuring 9.8 mm. He does report some fatty food intolerance with the associated nausea, abdominal pain without vomiting. He denies fever or chills. He presents to discuss possible cholecystectomy. 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 Cervical stenosis of spinal canal Gallbladder polyp Cervical radiculopathy Tobacco use disorder Claudication in peripheral vascular disease Positive depression screening Lump on neck Lumbar radiculopathy Compression fracture of body of thoracic vertebra Pure hypercholesterolemia Essential hypertension Uncontrolled type 2 diabetes mellitus with hyperglycemia Back disorder High blood pressure High blood cholesterol Diabetes Surgical History Hx of cervical spine surgery (05/18/24) History of abdominal surgery Amputation of third toe, left, traumatic Family History Mother High blood pressure Diabetes Substance abuse Alcoholism Maternal Uncle Diabetes High blood pressure Father Substance abuse Alcoholism Brother Substance abuse Social History Household Members: None Both parents involved: No Caregiver staying overnight: No Housing: Apartment Are you a primary care director rn to a significant other at home: No Do you presently have visiting nurse or other home services: No 75 years or older and lives alone: No Alcohol intake: current Alcohol intake frequency: holidays/special occasions only Comment: on occasion Patient Tobacco Use Status: Current everyday Tobacco user Tobacco use type: Cigarette Cigarettes Per Day: 5 e-Cigarette/Vaping Use: Never Used Second Hand Smoke Exposure: Yes Substance Use Type: Marijuana service: No Current occupational status: disabled Cognitive needs: No Hearing needs: No Vision needs: Yes (Patient wears glasses) Review of Systems Const All systems reviewed & are unremarkable except as noted in HPI and below Physical Exam Vital Signs: Last Vital Signs BP 140/82 H 06/18/25 10:28 BMI result Body Mass Index 32.1 Const General: cooperative and no acute distress Nutritional Appearance: well nourished Orientation/consciousness: patient oriented x3 Limitations: no limitations HEENT Head: Yes normocephalic and Yes atraumatic Ears: hearing grossly normal bilaterally Resp Effort & Inspection: normal respiratory effort, no audible wheezes, no cough and no respiratory distress Cardio Jugular venous distension: no JVD GI Other: Soft, nondistended, nontender to deep palpation with a negative Headley sign. No rebound, guarding or rigidity. No abdominal scars or hernias appreciated. Inspection: Yes normal to inspection Skin Other: Warm, dry, no rash Neuro General: patient oriented x3 Extrem General: Yes no clubbing, cyanosis or edema Assessment & Plan Assessment & Plan (1) Gallbladder polyp: Comment: 7 mm u/s in 03/2025 recommended for follow up Multiple polyps on u/s in 2024-referred to surgery 05/10/25 Code(s): K82.4 - Cholesterolosis of gallbladder Category: Medical Plan 49-year-old male patient presenting with complaints of upper abdominal pain, fatty food intolerance with the associated nausea without vomiting found on workup to have multiple gallbladder polyps the largest measuring 9.8 mm. The patient's discomfort is now mainly in the right upper quadrant and epigastrium. We discussed indications for laparoscopic or possible open cholecystectomy including the presence of a larger gallbladder polyp and the abdominal symptoms suggestive of biliary colic. After discussion of the procedure, risks, and alternatives, he consents to a laparoscopic or possible open cholecystectomy. Coding Level of Care Code New Pt Level 4 (44660) Diagnoses Gallbladder polyp K82.4
[2025-06-18 10:28] VITALS: BP 140/82; BMI 32.1
== END 2025-06-18 10:51 | disposition home or self-care (01) ==
LOC: HO.HGS 10:02
PROVIDERS: PCP Physician Assistant Medical; Visit Provider Surgery
DX: K82.4 Cholesterolosis of gallbladder (principal)
CPT/HCPCS: 99204

== ENCOUNTER → 2025-06-18 10:00 | Outpatient (BNVA) | payer OTHER, SELFPAY | PROVIDERS: PCP Physician Assistant Medical; Visit Provider Surgery | DX: K82.4 Cholesterolosis of gallbladder (principal) | CPT/HCPCS: 99202 ==